=== PATIENT | female | born 1950 | race Caucasian/White ===

== ENCOUNTER → 2019-02-27 09:20 | Outpatient (CLI) | payer MEDICARE, OTHER, SELFPAY ==
--- NOTE | 2019-02-27 | DI.MRI.S_ITS ---
PROCEDURE: MR LUMBAR SPINE WO CON INDICATIONS: LUMBAR RADICULOPATHY TECHNIQUE: Noncontrast sagittal T1 spin echo and T2 fast echo, sagittal STIR, axial T1 and T2 fast spin echo through the lumbar spine. In cases with scoliosis, additional coronal T2 fast spin echo may be performed. COMPARISON: Outside Film, MR, MR LUMBAR SPINE WITH/WITHOUT CONTRAST, 12/26/2018, 8:36. Outside Film, MR, MR LUMBAR SPINE WITH/WITHOUT CONTRAST, 12/26/2018, 8:36. FINDINGS: Image quality: Excellent. Alignment and Curvature: There is normal bony alignment. Bone Marrow: There are degenerative endplate signal changes throughout the lumbar spine, most pronounced at the inferior endplate of L1, superior and inferior endplates of L2 and L3, and inferior endplate of L5. No acute vertebral body compression fractures. Spinal Cord: Conus medullaris terminates at the L1-L2 level. Visualized cord demonstrates normal signal and size. Paraspinous Soft Tissues: No paravertebral masses. L1-L2: Severe loss of disc height and disc desiccation. There is posterior disc bulge and disc osteophyte complex. The central canal is mildly narrowed. Mild bilateral foraminal stenosis. No definitive nerve root impingement. No significant change from last exam. L2-L3: Moderate loss of disc height and disc desiccation. There is posterior disc bulge and disc osteophyte complex. Mild facet arthropathy and hypertrophy of the ligamentum flavum. There is epidural lipomatosis. The central canal is uvcxntuy-dn-rqgcnr ly narrowed. Moderate left and mild right foraminal stenosis. No definitive nerve root impingement. No significant change from last exam. L3-L4: Moderate loss of disc height and disc desiccation. There is posterior disc bulge and disc osteophyte complex. Mild facet arthropathy and hypertrophy of ligamentum flavum. There is epidural lipomatosis. The central canal is severely narrowed. Moderate bilateral foraminal stenosis. No definitive nerve root impingement. No significant change from last exam. L4-L5: Mild loss of disc height and disc desiccation. There is posterior disc bulge and disc osteophyte complex. Severe facet arthropathy and mild hypertrophy of ligamentum flavum. There is epidural lipomatosis. The central canal is severely narrowed. Moderate bilateral foraminal stenosis. No definitive nerve root impingement. No significant change from last exam. L5-S1: Severe loss of disc height and disc desiccation. There is posterior disc bulge and disc osteophyte complex. Severe facet arthropathy and mild hypertrophy of ligamentum flavum. The central canal is mildly narrowed. Severe right and mild/moderate foraminal stenosis. No definitive nerve root impingement. No significant change from last exam. IMPRESSION: 1. Multilevel degenerative disc disease and facet arthropathy as described. 2. Severe central canal stenosis at L3-L4 and L4-L5, and vpdtbdso-hw-isrivb central canal stenosis at L2-L3. 3. Multilevel foraminal stenosis as described. 4. Epidural lipomatosis at L2-L5. Dictated by: Olivia Bojorquez M.D. on 03/01/2019 at 9:17 Approved by: Olivia Bojorquez M.D. on 03/01/2019 at 18:51
== END ==
PROVIDERS: Visit Provider Dentist Oral and Maxillofacial Surgery
DX: M54.16 Radiculopathy, lumbar region (principal); M51.36 Other intervertebral disc degeneration, lumbar region; M51.37 Other intervertebral disc degeneration, lumbosacral region; M47.816 Spondylosis without myelopathy or radiculopathy, lumbar region; M47.817 Spondylosis without myelopathy or radiculopathy, lumbosacral region; M48.061 Spinal stenosis, lumbar region without neurogenic claudication; M48.07 Spinal stenosis, lumbosacral region
CPT/HCPCS: 72148

== ENCOUNTER → 2019-04-28 08:57 | Outpatient (CLI) | payer MEDICARE, OTHER, SELFPAY ==
--- NOTE | 2019-04-28 | DI.ECHO.S_ITS ---
[facility]---------+ [facility] +---------+ : : [address] : : : : [id number] : : : : Phone: [phone]+ Echocardiogram Report + + :Name: EVA KNOX Study Date: 04/28/2019 Height: 61 in : :[facility] Exam Location: [facility] Weight: 155 lb : : Gender: Female BSA: 1.7 m2 : :: 1950 Age: 68 yrs BP: 164/74 mmHg: :Reason For Study: HTN : : Performed By: Jacob Nunez : :Referring: MARILU BALL : + + Interpretation Summary 1) Normal left ventricular size, thickness, wall motion, and systolic function (EF 60-65%). 2) Normal right ventricular size and function. 3) The left atrium is moderately dilated. 4) No significant valvular abnormalities. 5) No prior Echo available for comparison. Procedure: A two-dimensional transthoracic echocardiogram with color flow and Doppler was performed. The study quality was technically adequate. There is no prior echocardiogram noted for this patient. The patient was in normal sinus rhythm during the exam. The patient was bradycardic with a heart rate of 52-60 beats per minute. Left Ventricle: The left ventricle is normal in size. There is normal left ventricular wall thickness. The ejection fraction is estimated to be 60-65%. There are no focal wall motion abnormalities. Right Ventricle: The right ventricle is normal in size and function. Atria: The left atrium is moderately dilated. Right atrial size is normal. The interatrial septum is intact with no evidence for an atrial septal defect. Mitral Valve: The mitral valve is normal in structure and function. There is no evidence of mitral valve prolapse. There is mild mitral regurgitation. Aortic Valve: The aortic valve is trileaflet. The aortic valve opens well. There is no aortic valve stenosis. No aortic regurgitation is present. Tricuspid Valve: The tricuspid valve is normal in structure and function. There is a trace or physiologic amount of tricuspid regurgitation. Pulmonary artery pressures cannot be estimated because of the lack of a measurable TR jet velocity. Pulmonic Valve: The pulmonic valve is normal in structure and function. There is trace pulmonic regurgitation. Great Vessels: The aortic root is normal size. The dimensions of the ascending aorta are normal. The pulmonary artery is normal size. The IVC is of normal diameter and collapses greater than 50% with a sniff. This suggests a low right atrial pressure of 3 mm Hg. Pericardium/ Pleura There is no pericardial effusion. There is no pleural effusion. MMode/2D Measurements & Calculations LVIDd: 4.6 cm LVOT diam: 2.0 cm LVIDs: 2.6 cm Ao root diam: 2.8 cm FS: 43.0 % Aortic Jxn: 1.8 cm EPSS: 0.39 cm asc Aorta Diam: 2.8 cm IVSd: 0.86 cm Ao Arch Diam (Prox Trans): 2.2 cm LVPWd: 0.78 cm LV bradford. diameter/BSA (cm/m^2): 2.7 LV sys. diameter/BSA (cm/m^2): 1.5 LA dimension: 4.0 cm RA long axis: 5.4 cm LA A2 area: 22.9 cm2 RA area: 13.9 cm2 LA A4 area: 25.9 cm2 RA vol: 30.3 ml LA length (vol): 6.3 cm RA : 17.9 ml/m2 LA vol: 79.8 ml IVC diam: 1.5 cm LA vol index: 47.1 ml/m2 Doppler Measurements & Calculations Ao V2 max: 119.9 cm/sec LVOT Max Domenic: 86.1 cm/sec Ao V2 mean: 89.7 cm/sec LV V1 max P.0 mmHg Ao max P.8 mmHg LV V1 VTI: 21.7 cm Ao mean P.4 mmHg ROSA(I,D): 2.2 cm2 Ao V2 VTI: 30.5 cm ROSA(V,D): 2.3 cm2 sev ratio: 0.71 ROSA indexed to BSA (cm^2/m^2): 1.3 MV E max domenic: 95.3 cm/sec PA V2 max: 75.7 cm/sec MV A max domenic: 53.7 cm/sec PA V2 mean: 55.4 cm/sec MV E/A: 1.8 PA mean P.3 mmHg Med Peak E' Domenic: 5.6 cm/sec PA pr(Accel): 6.6 mmHg E/E' med: 17.1 PA Accel Time: 0.16 sec Lat Peak E' Domenic: 10.8 cm/sec E/E' lat: 8.8 E/e' average: 12.9 MV dec time: 0.19 sec SV(LVOT): 68.1 ml Reading Physician:12:52 PM
== END ==
PROVIDERS: PCP Physician Assistant Medical; Visit Provider Internal Medicine Cardiovascular Disease
DX: I08.1 Rheumatic disorders of both mitral and tricuspid valves (principal); I10 Essential (primary) hypertension
CPT/HCPCS: 93306

== ENCOUNTER 2019-09-08 07:26 | Inpatient (IN) | payer MEDICARE, OTHER, SELFPAY ==
[2019-09-02 12:58] VITALS: BMI 30.8
[2019-09-08] VITALS (17 sets, daily range): BP systolic 82–113; BP diastolic 47–61; PULSE 62–76; RESP 9–18; TEMP 36.1–36.4; O2SAT 93–100; BMI 30.1
--- NOTE | 2019-09-08 | DI.RAD.S_ITS ---
PROCEDURE: XR LUMBAR SPINE 2-3V INDICATIONS: L4-5 L5-S1 TLIF TECHNIQUE: 2 views of the lumbar spine were acquired. COMPARISON: None. FINDINGS: Bones: 5 bth-ith-dvkjatt vertebrae are present. There is normal bony alignment. No vertebral body compression fractures. No suspicious bony lesions. There is posterior fixation from L4-S1, with interbody disc cage prosthesis device is at the 2 intervening levels. Soft tissues: Overlying bowel gas pattern is normal. No suspicious soft tissue calcifications. IMPRESSION: Normal alignment established after L4-S1 fusion procedure as discussed. Dictated by: Paul Isabel M.D. on 09/08/2019 at 15:40 Approved by: Paul Isabel M.D. on 09/08/2019 at 15:48
[2019-09-08] MEDS: LACTATED RINGERS 1,000 ML 42 ML IV ×3 (08:29→12:47)
[2019-09-08] MEDS: ACETAMINOPHEN 325 MG TABLET 975 MG PO (08:31)
[2019-09-08] MEDS: GABAPENTIN 300 MG CAPSULE PO (08:32)
[2019-09-08] MEDS: CELECOXIB 200 MG CAPSULE 400 MG PO (08:32)
--- NOTE | 2019-09-08 08:37 | PM.PREOP ---
Pre-operative Note Interval Note History & Physical reviewed/Exam performed by Physician: Yes Changes to H&P: No
[2019-09-08] MEDS: CEFAZOLIN 2 GM/100 ML FROZ.PIGGY IV ×2 (08:50→16:30)
--- NOTE | 2019-09-08 09:42 | SUR.OPER ---
Prone on spine table, head in foam head support, padded chest and pelvic supports, gel pad at knees, lower legs supported by pillows; nipples, genitalia and toes free of pressure, arms secured on foam padded arm boards at <90 degrees abduction. Tape over blanket at thigh secured to table.
[2019-09-08] MEDS: BUPIVACAINE 0.25% W/ EPI 30 ML VIAL INJ (09:51)
[2019-09-08] MEDS: BUPIVACAINE LIPOSOME 266 MG/20 ML VIAL INJ (09:52)
--- NOTE | 2019-09-08 13:47 | P.OP_ITS ---
Operative Date/Time/Diagnoses Date of procedure: 09/08/19 Pre-op diagnosis: 1. L4-5, L5-S1 spondylolisthesis 2. L4-5, L5-S1 spinal stenosis 3. Lumbar scoliosis Post-op diagnosis: same Procedure & Clinicians Procedure: 1. L4-5, L5-S1 Postero-lateral and posterior interbody fusion 2. L4-5, L5-S1 interbody cage placement. 3. L4-5, L5-S1 decompressive laminectomy with bilateral facetecomies 4. L4-5, L5-S1 Posterior segmental instrumentation 5. Tracy of bone marrow from iliac crest 6. Utilization of microsurgical technique and operating microscope Same procedure as scheduled: Yes Indications: Patient has been having chronic back pain and worsening lumbar radiculopathy. Patient failed multiple conservative management with worsening pain weakness and numbness in her lower extremity. Patient has been having difficulty performing activity of daily living. After discussing risks benefits of treatment options, patient elected proceed with surgery. Surgeon: Luis Larkin Media Relations Director: Rachel Zabala Click Yes if Unassisted: No Anesthesia Type: General Operative Notes Closure Type: primary Specimen(s): none sent Prosthetic devices, grafts, tissues, transplants, or devices: Globus revolve screws, Rise cages Applied: catheter Estimated Blood Loss (mL): 100 Blood products transfused: none Procedure in detail: Patient was seen in the preoperative area. Risks and benefits of the surgery was discussed with the patient. Informed consent was obtained from the patient and placed in the chart. Surgical site was marked. Patient was taken to the operative room. General anesthesia was administered. Prophylactic antibiotic was given to the patient less than 30 min before the incision was made. Patient was placed into a prone position on the Martin table. Patient's back was then prepped and draped in the sterile fashion. Time- out was performed at this time. Using AP and lateral C-arm imaging the interval between L4-S1 was identified and marked on patient's back. A 2 inch incision 2 in from midline was made on the right side first. The fascia was incised in line with skin incision. Globus MARS retractors was placed inside the incision and docked onto the L4 and L5 lamina. Using microsurgical technique and operating microscope, a L4 and L5 laminectomy and L4-5 L5-S1 facetectomy was performed using a Kerrison rongeur. During the process of decompression more than 75% of bilateral L4-5 L5-S1 facets were removed in order to decompress the spinal canal and the lateral recess. The L4-5 L5-S1 level was grossly unstable after the decompression was completed and requiring the fusion procedure. The disc space at L4-5, L5-S1 was identified. And a total diskectomy was performed at L4-5, L5-S1 level. The endplates were decorticated using a rasp and shaver. The total diskectomy and decortication was performed at L4-5, L5-S1 level in order to to accomplish a L4- 5, L5-S1 fusion. The local bone from the laminectomy and facetectomy was saved for local bone grafting. After the total diskectomy and decortication was completed, Bio4 bone graft material was combined with local bone that was harvested earlier. At this time, a separate skin is incision was made over the iliac crest. A Jamshidi needle was inserted into the iliac crest through a separate skin incision. 5 cc of bone marrow aspiration was obtained through the separate skin incision using a Jamshidi needle from the iliac crest. The bone marrow aspiration was combined with local bone and the Bio4 bone grafting material. The bone grafting material was placed into the L4-5, L5-S1 interbody space along with two cages, one expandable cage at each level. The cages were expanded to their maximum height using the torque limiting screwdriver. At this time a mirror image incision was made on the left side. The fascia was incised in line with the skin incision. Globus MARS retractor was inserted and docked onto the L4-5, L5-S1 posterolateral gutter. Using the power drill, posterior-lateral decortication was performed at L4-5, L5-S1 level until bleeding cortical bone was identified. The remaining bone grafting material was placed into the L4-5 L5-S1 posterior lateral gutter he order to accomplish posterolateral fusion at the L4-5 L5-S1 levels. Using the double C-arm technique, pedicle screws were placed into the L4, L5, S1 pedicles bilaterally. This was done by placing the Jamshidi needle into the pedicles, then placing the guidewires over the Jamshidi needle, and finally placing the cannulated screws over the guidewires bilaterally. After the pedicle screws were placed, 2 titanium rods was locked into the heads of the pedicle screws using locking caps and torque limiting screwdriver. Total 6 pedicles screws were placed. After all the hardware was placed, and confirmed with AP and lateral C-arm imaging, the wound was then irrigated with sterile normal saline and packed with Ray-Arturo gauze for 3 min to accomplish hemostasis. After the gauze was removed the deep fascia was closed with #1 Vicryl suture. The subcutaneous layer was closed with 2-0 Vicryl. The skin was closed with skin michelle. Patient tolerated the procedure well. There were no complications. Complications: none Post-operative Condition: stable Disposition: PACU Plan for aftercare: Admit to inpatient hospital
[2019-09-08] MEDS: HYDROMORPHONE 2 MG INJ IV ×2 (14:15→14:46)
[2019-09-08] MEDS: fentaNYL 100 MCG/2 ML INJ IV ×3 (14:16→14:38)
[2019-09-08] MEDS: hydrOXYzine pamoate 25 MG CAPSULE PO (14:16)
[2019-09-08] MEDS: OXYCODONE IR 5 MG TABLET PO (15:25)
[2019-09-08] MEDS: SODIUM CHLORIDE 0.9% 1,000 ML 100 ML IV (16:30)
--- NOTE | 2019-09-08 16:43 | PC.ADMIT ---
[address] Admission Note: The patient,Darlene Brady,69 y/o, was given written information regarding hospital policies, unit procedures and contact persons. Patient's smoking status: Former smoker. Vital Signs - 8 hr 09/08/19 13:54 09/08/19 13:59 09/08/19 14:04 Temperature 97.5 F L Pulse Rate 71 66 64 Respiratory Rate 11 L 10 L 12 Blood Pressure 108/54 L 82/47 L 93/55 L Pulse Oximetry 97 95 97 09/08/19 14:09 09/08/19 14:24 09/08/19 14:39 Temperature 96.9 F L Pulse Rate 71 76 72 Respiratory Rate 9 L 13 9 L Blood Pressure 104/61 99/53 L 93/49 L Pulse Oximetry 96 99 100 09/08/19 14:54 09/08/19 15:09 09/08/19 15:19 Temperature Pulse Rate 71 67 69 Respiratory Rate 12 10 L 10 L Blood Pressure 98/52 L 103/57 L 93/57 L Pulse Oximetry 94 97 100 09/08/19 15:53 09/08/19 16:26 Temperature 96.9 F L 97.1 F L Pulse Rate 67 65 Respiratory Rate 16 17 Blood Pressure 113/57 L 113/57 L Pulse Oximetry 100 98 Patient over from pacu. Awake and alert, calm and cooperative. Patient states pain 8/10, flight director give patient does of oxycodone at bed side. Maximiliang CDI. At this time pain is decreasing.
--- NOTE | 2019-09-08 16:57 | SUR.PHASEII ---
Report was called to LIA Martinez at 1500. Pt was then transferred to room 226 in stable condition at 1518.
[2019-09-08] MEDS: OXYCODONE IR 10 MG TABLET PO ×2 (18:53→22:15)
[2019-09-08] MEDS: QUINAPRIL 20 MG TABLET PO (20:20)
[2019-09-08] MEDS: DOCUSATE 100 MG CAPSULE PO (20:20)
[2019-09-08] MEDS: AMITRIPTYLINE 25 MG TABLET PO (20:20)
[2019-09-08] MEDS: SENNOSIDES 8.6 MG TABLET 17.2 MG PO (20:20)
[2019-09-08] MEDS: ATORVASTATIN 20 MG TABLET PO (20:20)
[2019-09-08] MEDS: atenoloL 50 MG TABLET 150 MG PO (20:21)
--- NOTE | 2019-09-08 21:30 | PC.NURSE ---
Patient resting in bed since back from pacu. Pain controlled well with oxycodone. + CMS. Patient has been calm and cooperate.
[2019-09-09] VITALS (7 sets, daily range): BP systolic 98–165; BP diastolic 48–73; PULSE 60–75; RESP 16–18; TEMP 36.5–36.9; O2SAT 97–100
--- NOTE | 2019-09-09 00:08 | PC.NURSE ---
Addendum entered by Erne Anaya R.N. 09/09/19 06:45: 0515: Awake, vital signs stable. Denies pain at this time. Addendum entered by Eren Anaya R.N. 09/09/19 04:59: 0405: Awake, denies pain at this time. Has been sleeping well. Original Note: Caustic Loader Note: 0000: Awake, resting in bed. Vital signs stable. Pt recently medicated for pain. O2 sats 86-90: placed on 2L O2/NC. IV in place in rt forearm.
[2019-09-09] MEDS: CEFAZOLIN 2 GM/100 ML FROZ.PIGGY IV (00:48)
[2019-09-09] MEDS: SODIUM CHLORIDE 0.9% 1,000 ML 100 ML IV (04:04)
[2019-09-09 05:02] LABS: Hematocrit 30.3 % (36-46); Hemoglobin 10.6 g/dL (12.0-16.0)
[2019-09-09] MEDS: OXYCODONE IR 10 MG TABLET PO ×5 (07:59→22:12)
[2019-09-09] MEDS: ALPRAZolam 0.5 MG TABLET 1 MG PO ×2 (07:59→21:19)
--- NOTE | 2019-09-09 10:42 | PT.IIE ---
Current Diagnoses Other secondary scoliosis, lumbar region (09/08/19) Other spondylosis with radiculopathy, lumbosacral region (09/08/19) Spinal stenosis, lumbar region without neurogenic claudication (09/08/19) Surgery Performed Operation Date: 09/08/19 08:45 Actual Procedures p L4-5,L5-S1 TLIF W/ Posterior Instrumentation - Luis Larkin MD Surgical History (Last Updated 09/02/19 @ 13:18 by Vicky Ngo RN) H/O: hysterectomy (Acute) History of bunionectomy of left great toe (Acute) Hx of lymph node biopsy (Acute) Hx of shoulder surgery (Acute) Medical History (Last Updated 09/03/19 @ 08:14 by Vicky Ngo RN) Acid reflux (Acute) Anxiety (Acute) Arthritis (Acute) ASHD (arteriosclerotic heart disease) (Acute) Atrial fibrillation (Acute) CAD (coronary artery disease) (Acute) H/O coronary angiogram (Acute ~2007) History of esophageal dilatation (Acute) HLD (hyperlipidemia) (Acute) HTN (hypertension) (Acute) PAF (paroxysmal atrial fibrillation) (Acute) Tuberculosis (Acute) Physical Therapy Inpatient Evaluation/Re-Eval M1 PT/OT-IP Prior Functional Status Start: 09/09/19 12:55 Freq: NEEDED Status: Active Protocol: Document 09/09/19 10:42 AB (Rec: 09/09/19 13:12 AB [id number]) Medical Review Prior Functional Status Medical History Reviewed Yes Communication able to make needs known Mobility and Gait pt stated that she is independent with all mobilities and ambulation without AD Social History Household Members significant other Living Arrangements House Number of Floors (Floors) One Floor Number of Stairs To Enter/Railing? 2 steps to enter with L rail ascending Home Environment Standard Height Toilet,Walk in Shower Home Equipment Straight Cane,Raised Toilet Seat Without Armrests,Hand Held Shower M2 PT-IP Current Condition Start: 09/09/19 12:55 Freq: NEEDED Status: Active Protocol: Document 09/09/19 10:42 AB (Rec: 09/09/19 13:12 AB [id number]) Physical Therapy Current Condition Current Condition Evaluation Date 09/09/19 Treatment Diagnosis s/p L4-5 L5S1 posterior fusion /lami; difficulty in walking Onset Date 09/08/2019 Precautions Lumbar Precautions Log Roll,No Twisting,Limit Bending,Lifting Restriction of 10 lbs,Gait Belt above Incisional Area M3 PT-IP Subjective Start: 09/09/19 12:55 Freq: NEEDED Status: Active Protocol: Document 09/09/19 10:42 AB (Rec: 09/09/19 13:12 AB [id number]) Subjective Physical Therapy Visit Type Type Initial Evaluation Visit Start Time 10:42 Visit Stop Time 11:25 Total Visit Minutes 43 Number of SCRAP METAL BURNER Visits 0 Physical Therapy Visit Comments Patient Comments pt is agreeable to do PT Therapy Pain Assessment Pain When Pain Assessed At Rest Pain Present Pain Present Pain Reported Location back Intensity 8 Scale Used Numeric (1 - 10) Pain Management Techniques Re-positioning,Timing of Activity with Medications M4 PT-IP Mobility and Gait Start: 09/09/19 12:55 Freq: NEEDED Status: Active Protocol: Document 09/09/19 10:42 AB (Rec: 09/09/19 13:12 AB [id number]) PT-Bed Mobility Assessment Rolling Type of Rolling Log Rolling Level of Assist Minimal Assistance Supine to Sit Supine to Sit Minimal Assistance PT-Transfer Assessment Sit to and From Stand Sit to and from Stand Minimal Assistance,Moderate Assistance,1 Person Assistance ,Use of Upper Extremities Equipment Transfer Assistive Device Gait Belt,Front Wheeled Walker Orthotic/Prosthetic Devices or Brace: No Transfers Transfer Destination Chair Transfer Technique ambulated using FWW Transfer Ability Level of Assist Minimal Assistance,Moderate Assistance,1 Person Assistance ,Use of Upper Extremities Comments Mobility Comments BP in supine: 103/55. reviewed back precautions and log roll bed mobility. pt completed bed mobility supine to sit min A and cues. Pt was able to sit on EOB SBA. BP: 121/56. pt was able to sit on EOB without any other complaints aside from back pain and BP checked again after ~ 2 min : 149/65. pt completed sit to stand min A to mod A and cues and was able to ambulate in room ~ 20 ft before sitting on the chair. positioned pt on the chair. call light and table placed within reach. BP checked: 157 /68. left pt with spouse. informed nurse regarding pt's mobility and BP Gait Assessment Gait Gait Assistance Required: Minimum Assistance Distance (Feet) 20 Able to Maintain Weight Bearing Status Yes During Gait Assistive Devices Assistive Device Gait Belt,Front Wheeled Walker Orthotic/Prosthetic Devices or Brace: No Gait Deviations General Gait Pattern Antalgic,Decreased Stride Length,Decreased Feet Clearance Factors Limiting Gait Function Factors Limiting Gait Function Decreased Activity Tolerance, Decreased Strength,Limited Range of Motion,Pain,Poor Balance PT-Balance Assessment Sitting Balance and Reactions Static Sitting Balance Ability Good Dynamic Sitting Balance Ability Good Standing Balance and Reactions Static Standing Balance Ability Fair Dynamic Standing Balance Ability Fair Device Used FWW M5 PT-IP Objective Assessments Start: 09/09/19 12:55 Freq: NEEDED Status: Active Protocol: Document 09/09/19 10:42 AB (Rec: 09/09/19 13:12 AB [id number]) Orientation Orientation/Cognition Level of Alertness Alert Orientation Name,Place,Situation Language Function Ability Hard of Hearing Gross Range of Motion Lower Extremity ROM Assessment Within Functional Limits Strength Comments Strength Comments RLE 3+/5 LLE 4-/5 Coordination Assessment Gross Coordination Gross Coordination WNL Sensation Assessment Sensation Gross Sensation WNL Muscle Tone Muscle Tone WNL Yes M6 PT-IP Treatment Start: 09/09/19 12:55 Freq: NEEDED Status: Active Protocol: Document 09/09/19 10:42 AB (Rec: 09/09/19 13:12 AB [id number]) Physical Therapy Treatment Education Education Provided Precautions,Weight Bearing Status,Post-Op Packet,Safety M7 PT-IP Assessment and Plan Start: 09/09/19 12:55 Freq: NEEDED Status: Active Protocol: Document 09/09/19 10:42 AB (Rec: 09/09/19 13:12 AB [id number]) PT Summary Assessment and Plan Potential Rehabilitation Potential Good Status of Condition at Evaluation Evolving Summary Impairments Pain,ROM,Strength,Balance, Coordination,Sensation,Tone, Cognition,Bed Mobility, Transfers,Gait,Activity Tolerance Assessment Summary pt requiring min to mod A with mobility using FWW but has decrease activity tolerance with c/o increase back pain. pt will likely progress during hospital stay and pt plans to go home with spouse to assist her. will conduct caregiver traing when appropriate and complete stair training. Goals Bed Mobility Goal Standby Assistance Transfer Goal Standby Assistance,Front Wheeled Walker Gait Goal Standby Assistance,Front Wheel Walker Gait Distance 150 Other Goals up/down 2 steps L rail ascending SBA Days to Meet Goals 5 Frequency of Treatment Frequency Of Treatment Twice a Day Treatment Plan Physical Therapy Treatment Plan Bed Mobility Training,Transfer Training,Gait Training, Therapeutic Exercise,Balance Retraining,Post Op Education, Discharge Planning,Hot or Cold Pack,Neuromuscular Re-ed, Coordination Retraining,Manual Therapy Other Recommendations and Next Treatment ambulation, bed moblity, Focus caregiver training Recommendations To Nursing Amount of Assist Needed 1 Person Assist Discharge Recommendations PT Discharge Recommendations Home with Assistance Equipment Needed for Home Before FWW Discharge Transportation Needs at Discharge Private Vehicle
[2019-09-09] MEDS: DOCUSATE 100 MG CAPSULE PO ×2 (10:50→21:16)
[2019-09-09] MEDS: ACETAMINOPHEN 325 MG TABLET 650 MG PO ×2 (10:50→21:16)
[2019-09-09] MEDS: MAGNESIUM OXIDE 400 MG TABLET PO (10:52)
--- NOTE | 2019-09-09 10:57 | CM.DANOTE ---
DCP: Case received, EMR reviewed and met with patient. Introduced self and role. Was able to meet with patient to obtain baseline health history and activity level. DCP assessment completed with information currently available. Patient is a 69 year old female who admitted yesterday morning to the care of the orthopedic team. PCP: Dr. Rodriguez. Payer: confirmed: Medicare/[employer]. Patient came to the hospital for a surgical procedure. She had Interbody Fusion/Laminectomy. Patient has had history of low back pain, as well as lower extremity numbness and tingling. Met with patient in her room. She is alert and oriented, Pleasant. Confirmed with patient that she resides in [place], on [facility] and lives alone. She has been independent prior to surgery, and does not use any DME supplies as of yet, but stated, I do use grabbers to help me integrated logistics support manager items off of the floor. She asked if she would need a walker. Let her know that P.T. would be working with her to make that determination. She also mentioned that she has a significant other, Jose Jack, who will help her out at home, as well as her neighbor, Elisha Miramontes. P: DCP to continue to follow, and will consult with P.T. When patient is medically cleared, and when cleared by P.T, she should be able to go home. Chelo Logan RN/Commutator Tester
[2019-09-09] MEDS: QUINAPRIL 20 MG TABLET PO (12:32)
[2019-09-09] MEDS: atenoloL 50 MG TABLET 150 MG PO (12:32)
[2019-09-09] MEDS: TRIAMTERENE/HCTZ 37.5/25 TABLET 1 CAP PO (12:32)
--- NOTE | 2019-09-09 15:14 | OT.IP.EVAL ---
Current Diagnoses Other secondary scoliosis, lumbar region (09/08/19) Other spondylosis with radiculopathy, lumbosacral region (09/08/19) Spinal stenosis, lumbar region without neurogenic claudication (09/08/19) Surgery Performed Operation Date: 09/08/19 08:45 Actual Procedures p L4-5,L5-S1 TLIF W/ Posterior Instrumentation - Luis Larkin MD Past Medical History (Last Updated 09/03/19 @ 08:14 by Vicky Ngo RN) Acid reflux (Acute) Anxiety (Acute) Arthritis (Acute) ASHD (arteriosclerotic heart disease) (Acute) Atrial fibrillation (Acute) CAD (coronary artery disease) (Acute) H/O coronary angiogram (Acute ~2007) History of esophageal dilatation (Acute) HLD (hyperlipidemia) (Acute) HTN (hypertension) (Acute) PAF (paroxysmal atrial fibrillation) (Acute) Tuberculosis (Acute) Surgical History (Last Updated 09/02/19 @ 13:18 by Vicky Ngo RN) H/O: hysterectomy (Acute) History of bunionectomy of left great toe (Acute) Hx of lymph node biopsy (Acute) Hx of shoulder surgery (Acute) Occupational Therapy Inpatient Evaluation/Re-Eval M1 PT/OT-IP Prior Functional Status Start: 09/09/19 12:55 Freq: NEEDED Status: Active Protocol: Document 09/09/19 15:14 KG (Rec: 09/09/19 17:06 KG [id number]) Medical Review Prior Functional Status Medical History Reviewed Yes Diet/Fluid Consistency Regular Communication WNL Mobility and Gait Pt states she is independent with ambulation without a device Activities of Daily Living and IADL's Pt states she is independent with all self care and does all IADLS at home, drives. Prior Functional Level (Other details) Pt's S.O. works auto parts clerk and has COPD per pt. Social History Household Members significant other Living Arrangements House Number of Floors (Floors) One Floor Number of Stairs To Enter/Railing? 2 TIM L rail ascending Home Environment Standard Height Toilet,Walk in Shower Home Equipment Straight Cane,Raised Toilet Seat Without Armrests,Hand Held Shower,Restaurant Recruiter Employment Status Retired M2 OT-IP Current Condition Start: 09/09/19 13:31 Freq: Status: Active Protocol: Document 09/09/19 15:14 PJM (Rec: 09/09/19 17:06 [facility] [id number]) Occupational Therapy Current Condition Current Condition Evaluation Date 09/09/19 Treatment Diagnosis decreased self care, mobility s/p L4-s1 TLIF with posterior instrumentation Diagnosis Onset Date 09/08/19 Post Operative Precautions Lumbar Precautions Log Roll M3 OT- IP Subjective and Pain Start: 09/09/19 13:31 Freq: Status: Active Protocol: Document 09/09/19 15:14 PJM (Rec: 09/09/19 17:06 PJ [id number]) OT- Subjective Occupational Therapy Visit Type Type Initial Evaluation Visit Start Time 14:31 Visit Stop Time 15:14 Total Visit Minutes 43 Occupational Therapy Visit Comments Patient Comments I tried to plan ahead. I freeze a lot of meals and get everything where I can reach it easily. Patient/Caregiver Goals to have less back pain during daily tasks and resume independence at home OT Pain Assessment Pain When Pain Assessed After Treatment Pain Present Pain Present Pain Reported Location back Intensity 3 Scale Used Numeric (1 - 10) Description Aching,Acute M4 OT- IP ADL's Start: 09/09/19 13:31 Freq: Status: Active Protocol: Document 09/09/19 15:14 PJM (Rec: 09/09/19 17:06 [facility] [id number]) OT [id number] General Evaluation Self-Feeding Ability Independent OT ADL-Grooming Comments OT Grooming Comments provided education re: body mechanics when standing at sink OT ADL-Oral Care Comments Oral Care Comments did not occur this session OT ADL-Dressing General Eval Lower Body Dressing Ability Standby Assistance Areas Needing Assistance Underpants/Brief,Socks Assistive Devices Dressing Assistive Devices Long Handled Shoe Horn,Restaurant Recruiter ,Sock Aid Comments OT Dressing Comments Provided education and practice re: use of manager park, sock aid and long shoe horn with emphasis on lumbar spine precautions. Pt has manager park, sock aid and long shoe horn provided. OT ADL-Toileting General Evaluation Areas Needing Assistance Perform Perineal Hygiene Comments OT Toileting Comments provided education re: body mechanics and use of toilet paper aid if needed OT ADL-Bathing Devices Bathing Equipment Long Handled Sponge or [place], Hand Held Shower Sprayer, Shower Chair without Arms Comments OT Bathing Comments pt declines to shower here; provided education re: body mechanics and long bath sponge provided, pt has ordered shower seat M5 OT- IP IADL's Start: 09/09/19 13:31 Freq: Status: Active Protocol: Document 09/09/19 15:14 PJM (Rec: 09/09/19 17:06 [facility] [id number]) OT-Instrumental Activities of Daily Living Deficits IADL Deficits Identified Deficits Home Safety Awareness Awareness of Need for Assistance at Home Good Awareness Ability to Problem Solve Emergency Able to Problem Solve Situations Medication Management Medication Management No Deficits Identified Money Management Money Management No Deficits Identified Meal Preparation Meal Preparation Caregiver Provides Assist Meal Preparation Comments S.O. to assist until pt able Night Manager Night Manager Caregiver Provides Assist Night Manager Comments S.O. to assist until pt able Driving Driving Caregiver Provides Assist Driving Comments S.O. to assist until pt able M6 OT- IP Functional Cognition Start: 09/09/19 13:31 Freq: Status: Active Protocol: Document 09/09/19 15:14 PJM (Rec: 09/09/19 17:06 [facility] [id number]) Cognitive Factors Limiting Selfcare Function Cognitive Ability Level of Alertness Alert Patient Orientation Name,Age,Birthday,Month,Date, Year,Day of Week,Place, Situation Attention Span Ability Capable of Focused Attention, Capable of Sustained Attention Ability to Follow Commands Able to Follow Multi-Step Commands Memory Description No Deficits Noted Safety Awareness No Deficits Noted Problem Solving Ability Needs Assist to Identify Solutions Cognitive Comments Cognitive Assessment Comments Pt verbalizes and demonstrates good understanding of lumbar spine precautions. OT- Vision and Hearing OT- Hearing Assessment OT- Hearing Assessment WFL OT- Vision Assessment Visual Acuity WFL,Glasses For Reading M7 OT- IP Mobility and Balance Start: 09/09/19 13:31 Freq: Status: Active Protocol: Document 09/09/19 15:14 PJ (Rec: 09/09/19 17:06 [facility] [id number]) OT-Transfer Assessment Sit to and From Stand Sit to and from Stand Contact Guard Assistance Technique Transfer Destination Chair Devices Transfer Assistive Devices Gait Belt,Front Wheeled Walker Comments Mobility Comments provided education re: body mechanics OT- Gait Assessment Comments Gait Ability Comments see P.T. notes OT- Balance Assessment Sitting Balance and Reactions Static Sitting Balance Ability Good Dynamic Sitting Balance Ability Good Standing Balance and Reactions Static Standing Balance Ability Good Dynamic Standing Balance Ability Good Comments Other Balance Tests/Deviations/Treatment during lower body dressing : M8 OT- IP Objective Assessments Start: 09/09/19 13:31 Freq: Status: Active Protocol: Document 09/09/19 15:14 PJM (Rec: 09/09/19 17:06 PJM [id number]) OT Gross Range of Motion Upper Extremity Range of Motion Assessment Within Functional Limits OT Strength Upper Extremity Strength Assessment Within Functional Limits Hand Tile And Marble Setter Strength Hand Dominance Left OT- Coordination Assessment Comments Coordination Comments BUE WNL OT Sensation Assessment Comments Summary Comments BUE WNL Edema Edema Absent M9 OT- IP Assessment and Plan Start: 09/09/19 13:31 Freq: Status: Active Protocol: Document 09/09/19 15:14 PJM (Rec: 09/09/19 17:06 PJM [id number]) OT Summary Assessment and Plan Potential Rehabilitation Potential Excellent Analytic Complexity at Evaluation Low Summary OT Impairments Pain,Functional Mobility, Dressing,Toileting,Bathing, Toilet Transfers,Shower Transfers,Activity Tolerance Assessment Summary Low complexity OT assessment completed on this 69 yr old woman admitted for L4-S1 TLIF. Pt is normally completely independent with all ADLS, IADLS, driving. Pt presents with mild performance deficits in functional mobility and self care due to post operative pain. Provided education re: lumbar spine precautions, posture, optimal chair selection, adapted techniques for lower body dressing and toileting, bathroom safety equipment options and car transfers. Plan 1 additional OT tx for further ADL training. Anticipate pt will d/c home tomorrow with assist from working S.O. and friends. Goals Grooming Goal Independent Dressing Goal Independent Toileting Goal Independent Toilet Transfer Goal Independent,Raised Toilet Seat Patient/Caregiver Education Goal Demonstrate Post-Op Precautions,Demonstrate Energy Conservation and Pacing, Caregiver Independent Assisting Patient Days to Meet Goals 1 Frequency of Treatment Frequency Of Treatment Once a Day Treatment Plan OT Treatment Plan ADL Training,Functional Mobility,Patient/Family Education,Discharge Planning Discharge Recommendations OT Discharge Recommendations Home with Assistance Transportation Needs at Discharge Private Vehicle
--- NOTE | 2019-09-09 15:17 | PT.IPTN ---
Current Diagnoses Other secondary scoliosis, lumbar region (09/08/19) Other spondylosis with radiculopathy, lumbosacral region (09/08/19) Spinal stenosis, lumbar region without neurogenic claudication (09/08/19) Surgery Performed Operation Date: 09/08/19 08:45 Actual Procedures p L4-5,L5-S1 TLIF W/ Posterior Instrumentation - Luis Larkin MD Physical Therapy Treatment Note M2 PT-IP Current Condition Start: 09/09/19 12:55 Freq: NEEDED Status: Active Protocol: Document 09/09/19 10:42 AB (Rec: 09/09/19 13:12 AB [id number]) Physical Therapy Current Condition Current Condition Evaluation Date 09/09/19 Treatment Diagnosis s/p L4-5 L5S1 posterior fusion /lami; difficulty in walking Onset Date 09/08/2019 Precautions Lumbar Precautions Log Roll,No Twisting,Limit Bending,Lifting Restriction of 10 lbs,Gait Belt above Incisional Area M3 PT-IP Subjective Start: 09/09/19 12:55 Freq: NEEDED Status: Active Protocol: Document 09/09/19 15:17 AB (Rec: 09/09/19 17:50 AB [id number]) Subjective Physical Therapy Visit Type Type Treatment Note Visit Start Time 15:17 Visit Stop Time 15:43 Total Visit Minutes 26 Number of LEARNING FACILITATOR Visits 0 Physical Therapy Visit Comments Patient Comments pt agreeable to do PT Therapy Pain Assessment Pain When Pain Assessed At Rest Pain Present Pain Present Pain Reported Location back Intensity 6 Scale Used Numeric (1 - 10) Pain Management Techniques Apply Cold,Re-positioning, Timing of Activity with Medications M4 PT-IP Mobility and Gait Start: 09/09/19 12:55 Freq: NEEDED Status: Active Protocol: Document 09/09/19 15:17 AB (Rec: 09/09/19 17:50 AB [id number]) PT-Bed Mobility Assessment Rolling Type of Rolling Log Rolling Level of Assist Standby Assistance Sit to Supine Sit to Supine Standby Assistance PT-Transfer Assessment Sit to and From Stand Sit to and from Stand Contact Guard Assistance,1 Person Assistance,Use of Upper Extremities Equipment Transfer Assistive Device Gait Belt,Front Wheeled Walker Orthotic/Prosthetic Devices or Brace: No Transfers Transfer Destination Bed,Toilet Transfer Technique ambulated using FWW Transfer Ability Level of Assist Contact Guard Assistance Comments Mobility Comments pt compoleted sit to stand from the chair CGA and cues. ambulated to the toilet using FWW CGA. required cues for techniques and safety. pt was able to maintain standing using FWW for support with brief management. completed sit to stand from the toilet CGA using grab bar and FWW to assist. ambulated to the sink using FWW CGA and was able to maintain standing CGA. pt ambulated in the hallway ~ 125 ft using fWW CGA and cues. presents with slow torey and guarded mobility. pt requested to go back to the bed. completed sit to supine SBA and cues. positioned in bed. call light and table placed within reach. Gait Assessment Gait Gait Assistance Required: Contact Guard Assist,1 Person Assist Distance (Feet) 125 Able to Maintain Weight Bearing Status No During Gait Assistive Devices Assistive Device Gait Belt,Front Wheeled Walker Orthotic/Prosthetic Devices or Brace: No Gait Deviations General Gait Pattern Decreased Stride Length, Decreased Feet Clearance Factors Limiting Gait Function Factors Limiting Gait Function Decreased Activity Tolerance, Decreased Strength,Limited Range of Motion,Pain,Poor Balance,Poor Safety Awareness Comments Gait Comments pls refer to mobility section for details M5 PT-IP Objective Assessments Start: 09/09/19 12:55 Freq: NEEDED Status: Active Protocol: Document 09/09/19 10:42 AB (Rec: 09/09/19 13:12 AB [id number]) Orientation Orientation/Cognition Level of Alertness Alert Orientation Name,Place,Situation Language Function Ability Hard of Hearing Gross Range of Motion Lower Extremity ROM Assessment Within Functional Limits Strength Comments Strength Comments RLE 3+/5 LLE 4-/5 Coordination Assessment Gross Coordination Gross Coordination WNL Sensation Assessment Sensation Gross Sensation WNL Muscle Tone Muscle Tone WNL Yes M6 PT-IP Treatment Start: 09/09/19 12:55 Freq: NEEDED Status: Active Protocol: Document 09/09/19 15:17 AB (Rec: 09/09/19 17:50 AB [id number]) Physical Therapy Treatment Education Education Provided Precautions,Safety M7 PT-IP Assessment and Plan Start: 09/09/19 12:55 Freq: NEEDED Status: Active Protocol: Document 09/09/19 15:17 AB (Rec: 09/09/19 17:50 AB [id number]) PT Summary Assessment and Plan Potential Rehabilitation Potential Good Summary Impairments Pain,ROM,Strength,Balance,Bed Mobility,Transfers,Gait, Activity Tolerance Progress Towards Goals Progressing Toward Goals Assessment Summary pt progressing with mobility but has decrease activity tolerance and requires increase time to complete tasks. Nurse informed PT that pt has d/c order to go home today. informed nurse that pt is not ready to go home and has to do stair training and caregiver training prior to d/ c. informed PA regarding concerns of discharging today and stated that pt can go tomorrow. Caregiver traing set up for tomorrow at 10 am per pt's choice. Nurse aware of plans. Goals Bed Mobility Goal Standby Assistance Transfer Goal Standby Assistance,Front Wheeled Walker Gait Goal Standby Assistance,Front Wheel Walker Gait Distance 150 Other Goals up/down 2 steps L rail ascending SBA Days to Meet Goals 5 Frequency of Treatment Frequency Of Treatment Twice a Day Treatment Plan Physical Therapy Treatment Plan Bed Mobility Training,Transfer Training,Gait Training, Therapeutic Exercise,Balance Retraining,Post Op Education, Discharge Planning,Hot or Cold Pack,Neuromuscular Re-ed, Coordination Retraining,Manual Therapy Other Recommendations and Next Treatment ambulation, bed moblity, Focus caregiver training Recommendations To Nursing Amount of Assist Needed 1 Person Assist Discharge Recommendations PT Discharge Recommendations Home with Assistance Equipment Needed for Home Before FWW Discharge Transportation Needs at Discharge Private Vehicle
--- NOTE | 2019-09-09 17:08 | PC.NURSE ---
Addendum entered by Stacy Bah R.N. 09/09/19 22:57: Pt sleeping soundly. No c/o pain. Addendum entered by Stacy Bah R.N. 09/09/19 21:25: Addendum entered by Stacy Bah R.N. 09/09/19 21:22: Pt rating pain now as 5/10 post IV Dilaudid. No longer crying. Addendum entered by Stacy Bah R.N. 09/09/19 21:14: Called to pt's room for 10/10 pain. Pt has BLE spasming, able to move both extremities. +CSM. Crying and clearly anxious from intense spasm. Given 0.5mg IV Dilaudid. Addendum entered by Stacy Bah R.N. 09/09/19 17:39: Pt to stay overnight. BAILEY Armstrong and PT have spoken face to face. Confirmed pt to DC tomorrow after PT does stair training and caregiver training around 10am./ Pt understands and is comfortable with the plan of care. POC tonight- pain control, encourage food intake, ambulate with walker and RN assistance and sleep well. Original Note: Pt given DC orders from physician. PT notified pt neds walker for home. Per PT- Pt is not ready and has not been completed on all discharge needs. Pt was not aware pt was to be discharged and cannot stay to complete stair eval or caregiver eval. Pt states her does not need caregiver training. Contacted DEVIN Armstrong and Dr Sue. Will coordinate communication between teams and let patient know.
--- NOTE | 2019-09-09 17:47 | PM.PNPO.1 ---
Subjective Subjective Date Patient Seen: 09/09/19 Time Patient Seen: 17:47 Interval history: POD #1 s/p L4-5, L5-S1 TLIF with Dr. Larkin. No acute events overnight. Patient reports 8/10 pain at rest. Pain is managed with tylenol and oxycodone. Mobilizing slowly with PT secondary to pain. Voiding without difficulty or assistance. Denies fever, chills, chest pain, shortness of breath, nausea, vomiting, pain in calves, urinary/bowel incontinence Exam Vital Signs (past 8 hours): - 09/09/19 10:29 09/09/19 12:02 09/09/19 16:07 Temperature 98.2 F 98.4 F Pulse Rate 66 60 Respiratory Rate 16 16 Blood Pressure 104/48 L 165/73 H 110/53 L Pulse Oximetry 97 100 Oxygen Delivery Method Nasal Cannula Oxygen Flow Rate 0 Narrative Exam Narrative: 69 year old female lying comfortably in bed in no apparent distress. A&Ox3. Dressing has moderate drainage. SCDs in place. Able to actively dorsiflex/plantar flex BL. Sensory function grossly intact to light touch in LE BL. Capillary refill <2sec in LE BL. Calves warm, soft, compressible, non tender to palpation BL. Objective Labs Result Diagrams: 09/09/19 04:40 Labs: Laboratory Results - last 24 hr 09/09/19 04:40 Hgb 10.6 L Hct 30.3 L Assessment & Plan Post-op Postoperative Procedures: Procedures Operation Date: 09/08/19 08:45 Actual Procedures Side Surgeon p L4-5,L5-S1 TLIF W/ Posterior Instrumentation Luis Larkin MD Postoperative day: 1 Postoperative status: doing well Postoperative plan narrative: Pain management - patient reports 8/10, was in no distress during assessment, patient hesitant to change pain medications because of hallucinations with other narcotics - continue current pain management, if pain does not improve, will consider dilaudid PO in AM Continue PT Continue SCDs for DVT prophylaxis Patient will most likely discharge home tomorrow Time Spent With Patient Time with patient: less than 15 minutes Quality VTE Deep Vein Thrombosis/Pulmonary Embolism Present on Admission: No
[2019-09-09] MEDS: HYDROMORPHONE 0.5 MG INJ IV (21:12)
[2019-09-09] MEDS: SENNOSIDES 8.6 MG TABLET 17.2 MG PO (21:15)
[2019-09-09] MEDS: ATORVASTATIN 20 MG TABLET PO (21:16)
[2019-09-09] MEDS: AMITRIPTYLINE 25 MG TABLET PO (21:21)
[2019-09-10] VITALS (15 sets, daily range): BP systolic 71–112; BP diastolic 34–72; PULSE 62–88; RESP 14–62; TEMP 35.9–36.8; O2SAT 94–100
[2019-09-10] MEDS: hydrOXYzine pamoate 25 MG CAPSULE PO (00:51)
[2019-09-10] MEDS: OXYCODONE IR 10 MG TABLET PO ×2 (00:51→04:01)
--- NOTE | 2019-09-10 01:57 | PC.NURSE ---
Prepress Specialist Note: 0030: Awake, states she is having 8/10 spasm-like pain going down both legs. Assisted to reposition to relieve pain. Vital signs stable. IV in place in rt forearm. SCDs on. 0050: Medicated for pain and spasms with Oxycodone 10mg and Vistaril 25mg po. Pt states she gets leg spasms at home and takes an [id number] medication that helps her.
--- NOTE | 2019-09-10 07:50 | PM.PNPO.1 ---
Subjective Subjective Date Patient Seen: 09/10/19 Time Patient Seen: 16:27 Interval history: POD #2 s/p L4-5, L5-S1 TLIF with Dr. Larkin. No acute events overnight. Patient reports 8/10 pain at rest. Pain is managed with tylenol and oxycodone. Oxycodone was reduced from 10mg to 5mg because patient was somnolent. Patient has been hypotensive overnight (EBL 100mL - blood pressure medication and vistaril held. Progression with PT has been slow secondary to hypotension. Voiding without difficulty or assistance. Denies fever, chills, chest pain, shortness of breath, nausea, vomiting, pain in calves, urinary/bowel incontinence Exam Vital Signs (past 8 hours): - 09/10/19 00:00 09/10/19 04:00 09/10/19 07:30 Temperature 96.7 F L 96.7 F L 98.3 F Pulse Rate 70 62 63 Respiratory Rate 16 62 H 14 Blood Pressure 102/50 L 91/49 L 82/48 L Pulse Oximetry 95 94 95 Oxygen Delivery Method Nasal Cannula Oxygen Flow Rate 0 Narrative Exam Narrative: 69 year old female lying comfortably in bed in no apparent distress. A&Ox3. Dressing has moderate drainage. SCDs in place. Able to actively dorsiflex/plantar flex BL. Sensory function grossly intact to light touch in LE BL. Capillary refill <2sec in LE BL. Calves warm, soft, compressible, non tender to palpation BL. Objective Labs Result Diagrams: 09/11/19 11:19 09/11/19 11:19 Assessment & Plan Post-op Postoperative Procedures: Procedures Operation Date: 09/08/19 08:45 Actual Procedures Side Surgeon p L4-5,L5-S1 TLIF W/ Posterior Instrumentation Luis Larkin MD Postoperative plan narrative: BP - hold BP meds and vistaril Bolus 500 NS w LR cc, if non responsive, bolus an additional 500cc Continue SCDs Mobilize with PT Continue current pain management Discharge likely tomorrow Time Spent With Patient Time with patient: less than 15 minutes Quality VTE Deep Vein Thrombosis/Pulmonary Embolism Present on Admission: No
[2019-09-10] MEDS: LACTATED RINGERS 1,000 ML 1000 ML IV (08:16)
[2019-09-10] MEDS: DOCUSATE 100 MG CAPSULE PO ×2 (08:23→22:29)
[2019-09-10] MEDS: MAGNESIUM OXIDE 400 MG TABLET PO (08:26)
--- NOTE | 2019-09-10 09:25 | PC.NURSE ---
0900-This BOILER PLANT WORKER walked by and noticed pt had spilled her drink on the ground. I confirmed that none spilled on her and she said, I dozed off. Notified RN as well as housekeeping and I cleaned up as much as possible. I also placed slip resistant socks on pt as she was in her own socks.
--- NOTE | 2019-09-10 09:42 | PC.NURSE ---
Addendum entered by Romelia De La Rosa R.N. 09/10/19 14:20: additional bolus of 500mls ordered for continued hypotension. PA Following, last BP 112/57 , continued pain control with decreased oxycodone dosing and holding vistaril. Pt was falling asleep with coffee in hand earlier in shift, we will monitor oxycodone dosing closely. UPdated Pt spouse that d/c highly unlikely today. Addendum entered by Romelia De La Rosa R.N. 09/10/19 11:13: Pt able to participate in PT with improved BPs 110's/60's. IV Sl. at bedside. Original Note: Am shift Pt is a/o though drowsy this AM. Holding off on pain meds as of yet, rating pain 2/10 at rest. BP low, order for bolus from PA 1st 500 ml given and no response with BP second 500mls given. Call into PA, BP remains 83/59. Feet elevated and Pt is up in chair, planning to work with PT and this AM, but d/t BP will hold off on this for now. Pt denies dizziness, assist of 1 FWW to bed.
--- NOTE | 2019-09-10 10:05 | PT.IPTN ---
Current Diagnoses Other secondary scoliosis, lumbar region (09/08/19) Other spondylosis with radiculopathy, lumbosacral region (09/08/19) Spinal stenosis, lumbar region without neurogenic claudication (09/08/19) Surgery Performed Operation Date: 09/08/19 08:45 Actual Procedures p L4-5,L5-S1 TLIF W/ Posterior Instrumentation - Luis Larkin MD Physical Therapy Treatment Note M2 PT-IP Current Condition Start: 09/09/19 12:55 Freq: NEEDED Status: Active Protocol: Document 09/09/19 10:42 AB (Rec: 09/09/19 13:12 AB [id number]) Physical Therapy Current Condition Current Condition Evaluation Date 09/09/19 Treatment Diagnosis s/p L4-5 L5S1 posterior fusion /lami; difficulty in walking Onset Date 09/08/2019 Precautions Lumbar Precautions Log Roll,No Twisting,Limit Bending,Lifting Restriction of 10 lbs,Gait Belt above Incisional Area M3 PT-IP Subjective Start: 09/09/19 12:55 Freq: NEEDED Status: Active Protocol: Document 09/10/19 10:05 AB (Rec: 09/10/19 10:50 AB [id number]) Subjective Physical Therapy Visit Type Type Treatment Note Visit Start Time 10:05 Visit Stop Time 10:32 Total Visit Minutes 27 Number of PLASTICS NURSE Visits 0 Physical Therapy Visit Comments Patient Comments pt stated that she had a bad night and did not sleep well Therapy Pain Assessment Pain When Pain Assessed At Rest Pain Present Pain Present Pain Reported Location back Intensity 8 Scale Used Numeric (1 - 10) Pain Management Techniques Timing of Activity with Medications M4 PT-IP Mobility and Gait Start: 09/09/19 12:55 Freq: NEEDED Status: Active Protocol: Document 09/10/19 10:05 AB (Rec: 09/10/19 10:50 AB [id number]) PT-Bed Mobility Assessment Supine to Sit Supine to Sit Minimal Assistance,1 Person Assistance Sit to Supine Sit to Supine Standby Assistance,1 Person Assistance Scooting Scooting to Edge of Bed Standby Assistance PT-Transfer Assessment Sit to and From Stand Sit to and from Stand Contact Guard Assistance,1 Person Assistance Comments Mobility Comments nurse stated that pt's BP has been low but was given saline bolus and is better. pt stated that she is tired but agreed to do PT. caregiver training initiated. reviewed back precautions with pt and spouse. educated spouse on how to use safety belt and how to assist pt. BP in supine: 103/55. pt completed bed mobility supine to sit min A. spouse requires further training. pt was able to sit on EOB SBA. sitting BP: 94/53. spouse was able to put safety belt on pt . pt completed sit to stand CGA with spouse assisting. BP checked in standin/45. instructed pt to sit down. pt scooted towards HOB SBA and completed sit to stand SBA and cues for techniques. positioned pt in bed. BP checked: 100/54. call light and table placed within reach. left pt with spouse. M5 PT-IP Objective Assessments Start: 09/09/19 12:55 Freq: NEEDED Status: Active Protocol: Document 09/09/19 10:42 AB (Rec: 09/09/19 13:12 AB [id number]) Orientation Orientation/Cognition Level of Alertness Alert Orientation Name,Place,Situation Language Function Ability Hard of Hearing Gross Range of Motion Lower Extremity ROM Assessment Within Functional Limits Strength Comments Strength Comments RLE 3+/5 LLE 4-/5 Coordination Assessment Gross Coordination Gross Coordination WNL Sensation Assessment Sensation Gross Sensation WNL Muscle Tone Muscle Tone WNL Yes M6 PT-IP Treatment Start: 09/09/19 12:55 Freq: NEEDED Status: Active Protocol: Document 09/10/19 10:05 AB (Rec: 09/10/19 10:50 AB [id number]) Physical Therapy Treatment Education Education Provided Precautions,Safety M7 PT-IP Assessment and Plan Start: 09/09/19 12:55 Freq: NEEDED Status: Active Protocol: Document 09/10/19 10:05 AB (Rec: 09/10/19 10:50 AB [id number]) PT Summary Assessment and Plan Potential Rehabilitation Potential Good Summary Impairments Pain,ROM,Strength,Balance, Coordination,Sensation,Tone, Cognition,Bed Mobility, Transfers,Gait,Activity Tolerance Progress Towards Goals Slow Progress due to Medical Issues,Slow Progress due to Activity Tolerance Assessment Summary caregiver training initiated but further training is required. pt did not tolerate much activity today with decrease in BP in standing. d /c plan is to go home with spouse assisting. will continue to assess progress. Goals Bed Mobility Goal Standby Assistance Transfer Goal Standby Assistance,Front Wheeled Walker Gait Goal Standby Assistance,Front Wheel Walker Gait Distance 150 Other Goals up/down 2 steps L rail ascending SBA Days to Meet Goals 5 Frequency of Treatment Frequency Of Treatment Twice a Day Treatment Plan Physical Therapy Treatment Plan Bed Mobility Training,Transfer Training,Gait Training, Therapeutic Exercise,Balance Retraining,Post Op Education, Discharge Planning,Hot or Cold Pack,Neuromuscular Re-ed, Coordination Retraining,Manual Therapy Other Recommendations and Next Treatment ambulation, bed moblity, Focus caregiver training Recommendations To Nursing Amount of Assist Needed 1 Person Assist Discharge Recommendations PT Discharge Recommendations Home with Assistance
[2019-09-10] MEDS: OXYCODONE IR 5 MG TABLET PO ×3 (10:15→17:31)
[2019-09-10] MEDS: LACTATED RINGERS 500 ML 1000 ML IV (12:00)
--- NOTE | 2019-09-10 12:10 | OT.IP.TRT ---
Current Diagnoses Other secondary scoliosis, lumbar region (09/08/19) Other spondylosis with radiculopathy, lumbosacral region (09/08/19) Spinal stenosis, lumbar region without neurogenic claudication (09/08/19) Surgery Performed Operation Date: 09/08/19 08:45 Actual Procedures p L4-5,L5-S1 TLIF W/ Posterior Instrumentation - Luis Larkin MD Occupational Therapy Treatment Note M2 OT-IP Current Condition Start: 09/09/19 13:31 Freq: Status: Active Protocol: Document 09/09/19 15:14 PJM (Rec: 09/09/19 17:06 PJM [id number]) Occupational Therapy Current Condition Current Condition Evaluation Date 09/09/19 Treatment Diagnosis decreased self care, mobility s/p L4-s1 TLIF with posterior instrumentation Diagnosis Onset Date 09/08/19 Post Operative Precautions Lumbar Precautions Log Roll M3 OT- IP Subjective and Pain Start: 09/09/19 13:31 Freq: Status: Active Protocol: Document 09/10/19 12:16 [facility] (Rec: 09/10/19 12:26 [facility] [id number]) OT- Subjective Occupational Therapy Visit Type Type Treatment Note Visit Start Time 11:00 Visit Stop Time 12:10 Total Visit Minutes 48 Notes Saw pt [id number] and then for 1205 to 1210 to touch base with pt's for caregiver training. Occupational Therapy Visit Comments Patient Comments Pt wanting to sponge off at the sink. Patient/Caregiver Goals To go home today. OT Pain Assessment Pain When Pain Assessed At Rest Pain Present Pain Present Pain Reported Location back Intensity 6 Scale Used Numeric (1 - 10) M4 OT- IP ADL's Start: 09/09/19 13:31 Freq: Status: Active Protocol: Document 09/10/19 12:16 [facility] (Rec: 09/10/19 12:26 [facility] [id number]) OT [id number] General Evaluation Self-Feeding Ability Independent OT ADL-Grooming General Evaluation Grooming Ability Standby Assistance Areas Needing Assistance Retrieving/Set-up of Grooming Items Comments OT Grooming Comments Reminders not to twist. OT ADL-Oral Care Comments Oral Care Comments did not occur this session OT ADL-Dressing General Eval Upper Body Dressing Ability Independent Lower Body Dressing Ability Standby Assistance Areas Needing Assistance Underpants/Brief,Socks Assistive Devices Dressing Assistive Devices Long Handled Shoe Horn,Blackjack Pit Boss ,Sock Aid Comments OT Dressing Comments Pt needing reminders to sit down in order to ama/doff brief. OT ADL-Toileting General Evaluation Toileting Ability Standby Assistance Comments OT Toileting Comments Practiced and pt able to stand to wipe however also able to show good safety to lean to the side and able to wipe without twisting. OT ADL-Bathing Bathing Type Bathing Type Sponge Bath General Evaluation Bathing Ability Contact Guard Assistance Comments OT Bathing Comments CGA for balance while standing to do pericare needs. Pt able to sponge off while standing and sitting in front of the sink. Pt able to comfortably cross her legs over to wash or educated for or use of talent acquisition director to assist. M5 OT- IP IADL's Start: 09/09/19 13:31 Freq: Status: Active Protocol: Document 09/09/19 15:14 PJM (Rec: 09/09/19 17:06 PJM [id number]) OT-Instrumental Activities of Daily Living Deficits IADL Deficits Identified Deficits Home Safety Awareness Awareness of Need for Assistance at Home Good Awareness Ability to Problem Solve Emergency Able to Problem Solve Situations Medication Management Medication Management No Deficits Identified Money Management Money Management No Deficits Identified Meal Preparation Meal Preparation Caregiver Provides Assist Meal Preparation Comments S.O. to assist until pt able Processing Tal[employer] Supervisor Processing [employer] Supervisor Caregiver Provides Assist Processing [employer] Supervisor Comments S.O. to assist until pt able Driving Driving Caregiver Provides Assist Driving Comments S.O. to assist until pt able M6 OT- IP Functional Cognition Start: 09/09/19 13:31 Freq: Status: Active Protocol: Document 09/10/19 12:16 [facility] (Rec: 09/10/19 12:26 [facility] [id number]) Cognitive Factors Limiting Selfcare Function Cognitive Ability Level of Alertness Alert Patient Orientation Name,Age,Birthday,Month,Date, Year,Day of Week,Place, Situation Attention Span Ability Capable of Focused Attention, Capable of Sustained Attention Ability to Follow Commands Able to Follow Multi-Step Commands Memory Description No Deficits Noted Safety Awareness Underestimates Need for Assistance Problem Solving Ability Needs Assist to Identify Solutions Cognitive Comments Cognitive Assessment Comments Pt needing cues to help incorporate back precautions as tends to twist at times to reach for items, or tries to hold onto objects as the same time as use of FWW. Educated to do one thing at a time. Educated pt's to help supervision pt for back precautions during needs. M7 OT- IP Mobility and Balance Start: 09/09/19 13:31 Freq: Status: Active Protocol: Document 09/10/19 12:16 [facility] (Rec: 09/10/19 12:26 [facility] [id number]) OT- Bed Mobility Assessment Rolling Type of Rolling Roll to Right Supine to Sit Supine to Sit Assist Standby Assistance Sit to Supine Sit to Supine Assist Standby Assistance OT-Transfer Assessment Sit to and From Stand Sit to and from Stand Standby Assistance,Contact Guard Assistance Transfers Transfer Ability Standby Assistance,Contact Guard Assistance Technique Transfer Destination Bed,Chair,Toilet Devices Transfer Assistive Devices Gait Belt,Front Wheeled Walker Comments Mobility Comments Pt needing reminders to push up from the surface sitting on versus grabbing the FWW. OT- Balance Assessment Sitting Balance and Reactions Static Sitting Balance Ability Normal Dynamic Sitting Balance Ability Normal Standing Balance and Reactions Static Standing Balance Ability Good Dynamic Standing Balance Ability Fair Comments Other Balance Tests/Deviations/Treatment Pt's BP in supine 97/50, : sitting 99/49, and standing 100/50. M8 OT- IP Objective Assessments Start: 09/09/19 13:31 Freq: Status: Active Protocol: Document 09/09/19 15:14 PJM (Rec: 09/09/19 17:06 PJM [id number]) OT Gross Range of Motion Upper Extremity Range of Motion Assessment Within Functional Limits OT Strength Upper Extremity Strength Assessment Within Functional Limits Hand Medical File Clerk Strength Hand Dominance Left OT- Coordination Assessment Comments Coordination Comments BUE WNL OT Sensation Assessment Comments Summary Comments BUE WNL Edema Edema Absent M9 OT- IP Assessment and Plan Start: 09/09/19 13:31 Freq: Status: Active Protocol: Document 09/09/19 15:14 PJM (Rec: 09/09/19 17:06 PJ [id number]) OT Summary Assessment and Plan Potential Rehabilitation Potential Excellent Analytic Complexity at Evaluation Low Summary OT Impairments Pain,Functional Mobility, Dressing,Toileting,Bathing, Toilet Transfers,Shower Transfers,Activity Tolerance Assessment Summary Low complexity OT assessment completed on this 69 yr old woman admitted for L4-S1 TLIF. Pt is normally completely independent with all ADLS, IADLS, driving. Pt presents with mild performance deficits in functional mobility and self care due to post operative pain. Provided education re: lumbar spine precautions, posture, optimal chair selection, adapted techniques for lower body dressing and toileting, bathroom safety equipment options and car transfers. Plan 1 additional OT tx for further ADL training. Anticipate pt will d/c home tomorrow with assist from working S.O. and friends. Goals Grooming Goal Independent Dressing Goal Independent Toileting Goal Independent Toilet Transfer Goal Independent,Raised Toilet Seat Patient/Caregiver Education Goal Demonstrate Post-Op Precautions,Demonstrate Energy Conservation and Pacing, Caregiver Independent Assisting Patient Days to Meet Goals 1 Frequency of Treatment Frequency Of Treatment Once a Day Treatment Plan OT Treatment Plan ADL Training,Functional Mobility,Patient/Family Education,Discharge Planning Discharge Recommendations OT Discharge Recommendations Home with Assistance Transportation Needs at Discharge Private Vehicle
[2019-09-10] MEDS: ACETAMINOPHEN 325 MG TABLET 650 MG PO ×2 (13:44→22:28)
--- NOTE | 2019-09-10 16:32 | PT.IPTN ---
Current Diagnoses Other secondary scoliosis, lumbar region (09/08/19) Other spondylosis with radiculopathy, lumbosacral region (09/08/19) Spinal stenosis, lumbar region without neurogenic claudication (09/08/19) Surgery Performed Operation Date: 09/08/19 08:45 Actual Procedures p L4-5,L5-S1 TLIF W/ Posterior Instrumentation - Luis Larkin MD Physical Therapy Treatment Note M2 PT-IP Current Condition Start: 09/09/19 12:55 Freq: NEEDED Status: Active Protocol: Document 09/09/19 10:42 AB (Rec: 09/09/19 13:12 AB [id number]) Physical Therapy Current Condition Current Condition Evaluation Date 09/09/19 Treatment Diagnosis s/p L4-5 L5S1 posterior fusion /lami; difficulty in walking Onset Date 09/08/2019 Precautions Lumbar Precautions Log Roll,No Twisting,Limit Bending,Lifting Restriction of 10 lbs,Gait Belt above Incisional Area M3 PT-IP Subjective Start: 09/09/19 12:55 Freq: NEEDED Status: Active Protocol: Document 09/10/19 16:32 AB (Rec: 09/10/19 17:31 AB [id number]) Subjective Physical Therapy Visit Type Type Treatment Note Visit Start Time 16:32 Visit Stop Time 17:05 Total Visit Minutes 33 Number of STUFFER Visits 0 Physical Therapy Visit Comments Patient Comments pt initially refusing PT. concerned about low BP. checked on pt again later on the afternoon and pt agreed to do PT. Therapy Pain Assessment Pain When Pain Assessed At Rest Pain Present Pain Present Pain Reported Location back Intensity 5 Scale Used Numeric (1 - 10) Pain Management Techniques Apply Cold,Re-positioning, Timing of Activity with Medications M4 PT-IP Mobility and Gait Start: 09/09/19 12:55 Freq: NEEDED Status: Active Protocol: Document 09/10/19 16:32 AB (Rec: 09/10/19 17:31 AB [id number]) PT-Transfer Assessment Sit to and From Stand Sit to and from Stand Contact Guard Assistance,1 Person Assistance,Use of Upper Extremities Equipment Transfer Assistive Device Gait Belt,Front Wheeled Walker Orthotic/Prosthetic Devices or Brace: No Transfers Transfer Destination Chair Transfer Technique ambulated using FWW Comments Mobility Comments Pt sitting on EOB with nursing and pt want to walk with PT. BP sitting on EOB: 108/52. completed sit to stand CGA. BP checked: 92/50. pt was able to maintain standing using FWW SBA to CGA. checked pt again after ~ 2 min : 101/55. pt ambulated in room using FWW CGA ~ 25 ft. No complaints of dizziness/ lightheadedness. BP checked after walkin/54. pt rested for a few minutes and agreed to walk again. BP checked prior to ambulation: 105/55. Pt ambulated in the hallway using FWW CGA ~ 125 ft . BP checked after ambulation sitting on chair: 96/51. positioned pt on chair. call light and table placed within reach. Gait Assessment Gait Gait Assistance Required: Contact Guard Assist Distance (Feet) 125 Able to Maintain Weight Bearing Status Yes During Gait Assistive Devices Assistive Device Gait Belt,Front Wheeled Walker Orthotic/Prosthetic Devices or Brace: No Gait Deviations General Gait Pattern Antalgic,Decreased Stride Length,Decreased Feet Clearance Factors Limiting Gait Function Factors Limiting Gait Function Decreased Activity Tolerance, Decreased Strength,Limited Range of Motion,Pain,Poor Balance,Poor Safety Awareness Comments Gait Comments pls refer to mobility section for details M5 PT-IP Objective Assessments Start: 09/09/19 12:55 Freq: NEEDED Status: Active Protocol: Document 09/09/19 10:42 AB (Rec: 09/09/19 13:12 AB [id number]) Orientation Orientation/Cognition Level of Alertness Alert Orientation Name,Place,Situation Language Function Ability Hard of Hearing Gross Range of Motion Lower Extremity ROM Assessment Within Functional Limits Strength Comments Strength Comments RLE 3+/5 LLE 4-/5 Coordination Assessment Gross Coordination Gross Coordination WNL Sensation Assessment Sensation Gross Sensation WNL Muscle Tone Muscle Tone WNL Yes M6 PT-IP Treatment Start: 09/09/19 12:55 Freq: NEEDED Status: Active Protocol: Document 09/10/19 16:32 AB (Rec: 09/10/19 17:31 AB [id number]) Physical Therapy Treatment Education Education Provided Precautions,Safety M7 PT-IP Assessment and Plan Start: 09/09/19 12:55 Freq: NEEDED Status: Active Protocol: Document 09/10/19 16:32 AB (Rec: 09/10/19 17:31 AB [id number]) PT Summary Assessment and Plan Potential Rehabilitation Potential Good Summary Impairments Pain,ROM,Strength,Balance, Coordination,Sensation,Tone, Cognition,Bed Mobility, Transfers,Gait,Activity Tolerance Progress Towards Goals Slow Progress due to Activity Tolerance Assessment Summary pt progresssing slowly with mobility due to decrease activity tolerance with decrease in BP. pt continues to have low BP but tolerate more this afternoon that this morning. caregiver training will be conducted again and also has to complete stair climbing next tx session if appropriate. will continue to assess progress for safe d/c. Goals Bed Mobility Goal Standby Assistance Transfer Goal Standby Assistance,Front Wheeled Walker Gait Goal Standby Assistance,Front Wheel Walker Gait Distance 150 Other Goals up/down 2 steps L rail ascending SBA Days to Meet Goals 5 Frequency of Treatment Frequency Of Treatment Twice a Day Treatment Plan Physical Therapy Treatment Plan Bed Mobility Training,Transfer Training,Gait Training, Therapeutic Exercise,Balance Retraining,Post Op Education, Discharge Planning,Hot or Cold Pack,Neuromuscular Re-ed, Coordination Retraining,Manual Therapy Other Recommendations and Next Treatment ambulation, bed moblity, Focus caregiver training Recommendations To Nursing Amount of Assist Needed 1 Person Assist Discharge Recommendations PT Discharge Recommendations Home with Assistance Transportation Needs at Discharge Private Vehicle
--- NOTE | 2019-09-10 18:30 | PC.NURSE ---
Evening Shift Note: Pt initially sleeping. BP just after waking was 79/38 at 1530. BP gradually increasing to 98/47 by 1600. Pt complaining of pain, 10/10 at this time. No pain medication available at this time beside iv dilaudid, not given d/t pt's low BP. Pt also complained of numbness and radiating pain in BLE, pt reported that she had only experienced this pain in her RLE prior to surgery. Pt walked with PT around the unit, sat up in chair for dinner, then was helped back to bed after getting 5 mg po oxycodone. When pt was OOB, pain was rated 6/10, tolerable. Once pt was back in bed again, pain was up to 10/10, no oxycodone available, BP at that time was 98/51. Pt given 0.5 mg iv dilaudid, with pt stating pain was gone. Pt with BP rechecked after dilaudid and 69/48 at 1900, pt checked on and BP rechecked with BP 89/50 (MAP 64) at 1905. Discussed pt's sensitivity to dilaudid IV and that pt will no longer be receiving iv dilaudid. Pt is now resting in bed comfortably. Will continue to monitor, notify MD with changes.
[2019-09-10] MEDS: HYDROMORPHONE 0.5 MG INJ IV (18:54)
[2019-09-10] MEDS: ATORVASTATIN 20 MG TABLET PO (22:29)
[2019-09-10] MEDS: OXYCODONE IR 5 MG TABLET 10 MG PO (22:29)
[2019-09-10] MEDS: SENNOSIDES 8.6 MG TABLET 17.2 MG PO (22:29)
[2019-09-10] MEDS: AMITRIPTYLINE 25 MG TABLET PO (22:30)
--- NOTE | 2019-09-10 23:47 | PC.NURSE ---
Evening Shift Note: Dr. Olvera contacted to notify MD about pt's continued transient low BP. Also discussed pt's numbness and radiating pain in BLE and preop only R leg affected. This RN requested non-narcotic pain medication. Okayed to give oxycodone even if pt has been having transient hypotension.
[2019-09-11] VITALS: BP 72/40; PULSE 78; RESP 18; TEMP 36.6; O2SAT 92
[2019-09-11 00:08] VITALS: BP 104/47
[2019-09-11 00:09] VITALS: BP 104/47
[2019-09-11 05:33] VITALS: BP 105/52; PULSE 64; RESP 16; TEMP 36.6; O2SAT 95
--- NOTE | 2019-09-11 06:12 | PC.NURSE ---
assumed care of pt around 0200 Vitals stable. SBP soft in low 100s Denied pain meds this morning Stated to previous RN that her Left leg numbness is new
[2019-09-11 08:23] VITALS: BP 127/55; PULSE 81; RESP 16; TEMP 36.1; O2SAT 98
[2019-09-11] MEDS: OXYCODONE IR 5 MG TABLET PO ×2 (08:36→12:07)
[2019-09-11] MEDS: DOCUSATE 100 MG CAPSULE PO (08:37)
[2019-09-11] MEDS: MAGNESIUM OXIDE 400 MG TABLET PO (08:38)
--- NOTE | 2019-09-11 10:07 | PT.IPTN ---
Current Diagnoses Other secondary scoliosis, lumbar region (09/08/19) Other spondylosis with radiculopathy, lumbosacral region (09/08/19) Spinal stenosis, lumbar region without neurogenic claudication (09/08/19) Surgery Performed Operation Date: 09/08/19 08:45 Actual Procedures p L4-5,L5-S1 TLIF W/ Posterior Instrumentation - Luis Larkin MD Physical Therapy Treatment Note M2 PT-IP Current Condition Start: 09/09/19 12:55 Freq: NEEDED Status: Active Protocol: Document 09/09/19 10:42 AB (Rec: 09/09/19 13:12 AB [id number]) Physical Therapy Current Condition Current Condition Evaluation Date 09/09/19 Treatment Diagnosis s/p L4-5 L5S1 posterior fusion /lami; difficulty in walking Onset Date 09/08/2019 Precautions Lumbar Precautions Log Roll,No Twisting,Limit Bending,Lifting Restriction of 10 lbs,Gait Belt above Incisional Area M3 PT-IP Subjective Start: 09/09/19 12:55 Freq: NEEDED Status: Active Protocol: Document 09/11/19 10:07 AB (Rec: 09/11/19 13:31 AB [id number]) Subjective Physical Therapy Visit Type Type Treatment Note Visit Start Time 10:07 Visit Stop Time 11:02 Total Visit Minutes 55 Number of LACROSSE COACH Visits 0 Physical Therapy Visit Comments Patient Comments pt agreeable to do PT Therapy Pain Assessment Pain When Pain Assessed At Rest Pain Present Pain Present Pain Reported Location back Intensity 7 Scale Used Numeric (1 - 10) Pain Management Techniques Re-positioning,Timing of Activity with Medications M4 PT-IP Mobility and Gait Start: 09/09/19 12:55 Freq: NEEDED Status: Active Protocol: Document 09/11/19 10:07 AB (Rec: 09/11/19 13:31 AB [id number]) PT-Bed Mobility Assessment Rolling Level of Assist Standby Assistance Supine to Sit Supine to Sit Standby Assistance PT-Transfer Assessment Sit to and From Stand Sit to and from Stand Standby Assistance,Contact Guard Assistance Equipment Transfer Assistive Device Gait Belt,Front Wheeled Walker Orthotic/Prosthetic Devices or Brace: No Transfers Transfer Destination Chair Transfer Technique ambulated using FWW Transfer Ability Level of Assist Contact Guard Assistance,1 Person Assistance,Use of Upper Extremities Comments Mobility Comments BP in supine: 89/53. Pt asymptomatic. caregiver training conducted. spouse was able to assist pt with bed mobility, sit to stand ambulation. BP sitting on EOB : 88/44. pt sat on EOB for ~ 2-3 min and BP checked again: 117/51. completed sit to stand with spouse assisting CGA. BP in standin/52. pt ambulated in room ~ 50 ft using FWW and sat on chair. BP checked: 93/48. pt rested for a few more minutes 110/54. pt without c/o dizziness/ lightheadedness. pt agreed to ambulate out in the hallway and do stair. BP checked again prior to walkin/56 . pt ambulated using FWW ~ 100 ft. with spouse assisting. assisted towards the stairs. completed up/down steps using L rail with pt holding on with B hands. pt assisted back to her room. agreed to sit up on chair. ambulated from w/c to chair using FWW SBA. positioned on chair. call light and table placed within reach. BP: 104/ 52. Left pt with spouse. informed nurse regarding pt's mobility and BP. Gait Assessment Gait Gait Assistance Required: Standby Assistance,Contact Guard Assist Distance (Feet) 100 Able to Maintain Weight Bearing Status Yes During Gait Assistive Devices Assistive Device Gait Belt,Front Wheeled Walker Orthotic/Prosthetic Devices or Brace: No Gait Deviations General Gait Pattern Antalgic,Decreased Stride Length,Decreased Feet Clearance Factors Limiting Gait Function Factors Limiting Gait Function Decreased Activity Tolerance, Decreased Strength,Limited Range of Motion,Pain,Poor Balance Comments Gait Comments pls refer to mobility section for details Stair Climbing Assessment Evaluation Level of Assist On Stairs Contact Guard Assistance Devices Stair Climbing Assistive Devices Left Railing Technique/Endurance Stair Climbing Direction Ascend and Descend Stair Climbing Technique Step to Step Number of Steps Climbed 3 Stair Climbing Set # Repetitions (reps) 2 Comments Stair Climbing Comments instructed pt on how to do steps and spouse on how to assist pt. PT assist pt with 1st set and pt completed CGA with pt holding on to L rail with B hands. Spouse then assisted pt on 2nd set and completed safely. M5 PT-IP Objective Assessments Start: 09/09/19 12:55 Freq: NEEDED Status: Active Protocol: Document 09/09/19 10:42 AB (Rec: 09/09/19 13:12 AB [id number]) Orientation Orientation/Cognition Level of Alertness Alert Orientation Name,Place,Situation Language Function Ability Hard of Hearing Gross Range of Motion Lower Extremity ROM Assessment Within Functional Limits Strength Comments Strength Comments RLE 3+/5 LLE 4-/5 Coordination Assessment Gross Coordination Gross Coordination WNL Sensation Assessment Sensation Gross Sensation WNL Muscle Tone Muscle Tone WNL Yes M6 PT-IP Treatment Start: 09/09/19 12:55 Freq: NEEDED Status: Active Protocol: Document 09/11/19 10:07 AB (Rec: 09/11/19 13:31 AB [id number]) Physical Therapy Treatment Education Education Provided Precautions,Safety M7 PT-IP Assessment and Plan Start: 09/09/19 12:55 Freq: NEEDED Status: Active Protocol: Document 09/11/19 10:07 AB (Rec: 09/11/19 13:31 AB [id number]) PT Summary Assessment and Plan Potential Rehabilitation Potential Good Summary Impairments Pain,ROM,Strength,Balance,Bed Mobility,Transfers,Gait, Activity Tolerance Progress Towards Goals Slow Progress due to Medical Issues Assessment Summary pt's BP remains low but stable and pt does not complain of any symptoms. caregiver training conducted and spouse was able to assist pt safety with bed mobility, transfers, ambulation and stair climbing. pt may go home when medically stable. Goals Bed Mobility Goal Standby Assistance Transfer Goal Standby Assistance,Front Wheeled Walker Gait Goal Standby Assistance,Front Wheel Walker Gait Distance 150 Other Goals up/down 2 steps L rail ascending SBA Days to Meet Goals 5 Frequency of Treatment Frequency Of Treatment Twice a Day Treatment Plan Physical Therapy Treatment Plan Bed Mobility Training,Transfer Training,Gait Training, Therapeutic Exercise,Balance Retraining,Post Op Education, Discharge Planning,Hot or Cold Pack,Neuromuscular Re-ed, Coordination Retraining,Manual Therapy Other Recommendations and Next Treatment ambulation, bed moblity, Focus caregiver training Recommendations To Nursing Amount of Assist Needed 1 Person Assist Discharge Recommendations PT Discharge Recommendations Home with Assistance Transportation Needs at Discharge Private Vehicle
[2019-09-11 11:27] LABS: Add Manual Diff / Slide Review NO; Basophils Absolute Auto 0 /uL (0-100); Basophils Percent Auto 0.3 % (0-2); Eosinophils Absolute Auto 100 /uL (0-450); Eosinophils Percent Auto 1.7 % (2-4); Hematocrit 26.4 % (36-46); Hemoglobin 9.2 g/dL (12.0-16.0); Lymphocytes Absolute Auto 1200 /uL (1100-4500); Lymphocytes Percent Auto 16.9 % (25-40); Mean Corpuscular HGB Conc 34.7 % (30-36); Mean Corpuscular Hemoglobin 32.9 PG (26-34); Mean Corpuscular Volume 94.9 fL (80-100); Monocytes Absolute Auto 400 /uL (0-900); Monocytes Percent Auto 5.2 % (3-14); Neutrophils Absolute Auto 5200 /uL (1500-7000); Neutrophils Percent Auto 75.9 % (50-75); Platelet Count 141 X10^3/uL (150-400); Red Blood Cell Count 2.78 X10^6/uL (4.0-5.2); Red Cell Distribution Width 13.4 % (11.6-14.8); White Blood Cell Count 6.9 X10^3/uL (4.5-11.0)
[2019-09-11 11:48] LABS: Alanine Aminotransferase 57 IU/L (<35); Albumin 3.5 g/dL (3.5-5.0); Albumin Globulin Ratio 1.2 (1.0-2.8); Alkaline Phosphatase 174 U/L (38-126); Aspartate Aminotransferase 58 IU/L (14-36); BUN Creatinine Ratio 17.8 (6-22); Bilirubin Total 0.6 mg/dL (0.2-1.3); Blood Urea Nitrogen 16 mg/dL (7-17); Calcium 9.2 mg/dL (8.4-10.2); Carbon Dioxide 36 mmol/L (22-32); Chloride 100 mmol/L (98-107); Estimated Glomerular Filt Rate > 60.0 mL/min (>60); Glucose 116 mg/dL (80-110); HEMOLYSIS < 15 (0-50); Potassium 4.1 mmol/L (3.4-5.1); Sodium 139 mmol/L (137-145); Total Protein 6.5 g/dL (6.3-8.2)
[2019-09-11 12:00] VITALS: BP 120/50; PULSE 70; RESP 16; TEMP 36.8; O2SAT 100
[2019-09-11] MEDS: ACETAMINOPHEN 325 MG TABLET 650 MG PO (12:37)
--- NOTE | 2019-09-11 12:55 | OT.IP.TRT ---
Current Diagnoses Other secondary scoliosis, lumbar region (09/08/19) Other spondylosis with radiculopathy, lumbosacral region (09/08/19) Spinal stenosis, lumbar region without neurogenic claudication (09/08/19) Surgery Performed Operation Date: 09/08/19 08:45 Actual Procedures p L4-5,L5-S1 TLIF W/ Posterior Instrumentation - Luis Larkin MD Occupational Therapy Treatment Note M2 OT-IP Current Condition Start: 09/09/19 13:31 Freq: Status: Active Protocol: Document 09/09/19 15:14 PJM (Rec: 09/09/19 17:06 PJM [id number]) Occupational Therapy Current Condition Current Condition Evaluation Date 09/09/19 Treatment Diagnosis decreased self care, mobility s/p L4-s1 TLIF with posterior instrumentation Diagnosis Onset Date 09/08/19 Post Operative Precautions Lumbar Precautions Log Roll M3 OT- IP Subjective and Pain Start: 09/09/19 13:31 Freq: Status: Active Protocol: Document 09/11/19 13:19 CGR (Rec: 09/11/19 13:24 CGR [email or web address]) OT- Subjective Occupational Therapy Visit Type Type Progress Note Visit Start Time 12:44 Visit Stop Time 12:55 Total Visit Minutes 11 Notes Visit focused on home safety. OT Pain Assessment Pain When Pain Assessed At Rest Pain Present Pain Present Pain Reported Location back Intensity 3 Scale Used Numeric (1 - 10) Management Techniques Re-positioning M4 OT- IP ADL's Start: 09/09/19 13:31 Freq: Status: Active Protocol: Document 09/10/19 12:16 CCC (Rec: 09/10/19 12:26 CCC [id number]) OT [id number] General Evaluation Self-Feeding Ability Independent OT ADL-Grooming General Evaluation Grooming Ability Standby Assistance Areas Needing Assistance Retrieving/Set-up of Grooming Items Comments OT Grooming Comments Reminders not to twist. OT ADL-Oral Care Comments Oral Care Comments did not occur this session OT ADL-Dressing General Eval Upper Body Dressing Ability Independent Lower Body Dressing Ability Standby Assistance Areas Needing Assistance Underpants/Brief,Socks Assistive Devices Dressing Assistive Devices Long Handled Shoe Horn,Judicial Law Clerk ,Sock Aid Comments OT Dressing Comments Pt needing reminders to sit down in order to aam/doff brief. OT ADL-Toileting General Evaluation Toileting Ability Standby Assistance Comments OT Toileting Comments Practiced and pt able to stand to wipe however also able to show good safety to lean to the side and able to wipe without twisting. OT ADL-Bathing Bathing Type Bathing Type Sponge Bath General Evaluation Bathing Ability Contact Guard Assistance Comments OT Bathing Comments CGA for balance while standing to do pericare needs. Pt able to spong off while standing and sitting in front of the sink. Pt able to comfortably cross her legs over to washh or educated for or use of supply chain tech to assist. M5 OT- IP IADL's Start: 09/09/19 13:31 Freq: Status: Active Protocol: Document 09/09/19 15:14 PJM (Rec: 09/09/19 17:06 PJM [id number]) OT-Instrumental Activities of Daily Living Deficits IADL Deficits Identified Deficits Home Safety Awareness Awareness of Need for Assistance at Home Good Awareness Ability to Problem Solve Emergency Able to Problem Solve Situations Medication Management Medication Management No Deficits Identified Money Management Money Management No Deficits Identified Meal Preparation Meal Preparation Caregiver Provides Assist Meal Preparation Comments S.O. to assist until pt able Project Design Engineer Project Design Engineer Caregiver Provides Assist Project Design Engineer Comments S.O. to assist until pt able Driving Driving Caregiver Provides Assist Driving Comments S.O. to assist until pt able M6 OT- IP Functional Cognition Start: 09/09/19 13:31 Freq: Status: Active Protocol: Document 09/10/19 12:16 [facility] (Rec: 09/10/19 12:26 [facility] [id number]) Cognitive Factors Limiting Selfcare Function Cognitive Ability Level of Alertness Alert Patient Orientation Name,Age,Birthday,Month,Date, Year,Day of Week,Place, Situation Attention Span Ability Capable of Focused Attention, Capable of Sustained Attention Ability to Follow Commands Able to Follow Multi-Step Commands Memory Description No Deficits Noted Safety Awareness Underestimates Need for Assistance Problem Solving Ability Needs Assist to Identify Solutions Cognitive Comments Cognitive Assessment Comments Pt needign cues to help incorporate back precautions as tends to twist at times to reach for items, or tries to hold onto objects as the same time as use of FWW. Educated to do one thing at a time. Educated pt's to help superivison pt for back precautions during needs. M7 OT- IP Mobility and Balance Start: 09/09/19 13:31 Freq: Status: Active Protocol: Document 09/10/19 12:16 [facility] (Rec: 09/10/19 12:26 [facility] [id number]) OT- Bed Mobility Assessment Rolling Type of Rolling Roll to Right Supine to Sit Supine to Sit Assist Standby Assistance Sit to Supine Sit to Supine Assist Standby Assistance OT-Transfer Assessment Sit to and From Stand Sit to and from Stand Standby Assistance,Contact Guard Assistance Transfers Transfer Ability Standby Assistance,Contact Guard Assistance Technique Transfer Destination Bed,Chair,Toilet Devices Transfer Assistive Devices Gait Belt,Front Wheeled Walker Comments Mobility Comments Pt needing reminders to push up from the surface sittting on versus grabbing the FWW. OT- Balance Assessment Sitting Balance and Reactions Static Sitting Balance Ability Normal Dynamic Sitting Balance Ability Normal Standing Balance and Reactions Static Standing Balance Ability Good Dynamic Standing Balance Ability Fair Comments Other Balance Tests/Deviations/Treatment Pt's BP in supine 97/50, : sitting 99/49, and standing 100/50. M8 OT- IP Objective Assessments Start: 09/09/19 13:31 Freq: Status: Active Protocol: Document 09/09/19 15:14 PJM (Rec: 09/09/19 17:06 PJM [id number]) OT Gross Range of Motion Upper Extremity Range of Motion Assessment Within Functional Limits OT Strength Upper Extremity Strength Assessment Within Functional Limits Hand Stoneworking Belt Sander Strength Hand Dominance Left OT- Coordination Assessment Comments Coordination Comments BUE WNL OT Sensation Assessment Comments Summary Comments BUE WNL Edema Edema Absent M9 OT- IP Assessment and Plan Start: 09/09/19 13:31 Freq: Status: Active Protocol: Document 09/11/19 13:19 CGR (Rec: 09/11/19 13:24 CGR [email or web address]) OT Summary Assessment and Plan Potential Rehabilitation Potential Excellent Analytic Complexity at Evaluation Low Summary OT Impairments Pain,Functional Mobility, Dressing,Toileting,Bathing, Toilet Transfers,Shower Transfers,Activity Tolerance Assessment Summary Checked on pt for OT services. PT states she has performed all ADLs and is ready to go home. Discussed home safety with low BP and fluid intake including over hydrating and the need for electrolytes with certain symptoms. Pt states understanding. BP 104/50 seated. Pt declined other activity at this time. Pt left sitting up in chair as found. Call button within reach and all needs at time met. Goals Grooming Goal Independent Dressing Goal Independent Toileting Goal Independent Toilet Transfer Goal Independent,Raised Toilet Seat Patient/Caregiver Education Goal Demonstrate Post-Op Precautions,Demonstrate Energy Conservation and Pacing, Caregiver Independent Assisting Patient Days to Meet Goals 1 Frequency of Treatment Frequency Of Treatment Once a Day Treatment Plan OT Treatment Plan ADL Training,Functional Mobility,Patient/Family Education,Discharge Planning Discharge Recommendations OT Discharge Recommendations Home with Assistance Transportation Needs at Discharge Private Vehicle
--- NOTE | 2019-09-11 13:19 | PM.DS.1 ---
History of Present Illness History of Present Illness Date Patient Seen: 09/11/19 Time Patient Seen: 13:19 Chief complaint: Translaminar Interbody Fusion/Laminotomy Narrative: Indications: Patient has been having chronic back pain and worsening lumbar radiculopathy. Patient failed multiple conservative management with worsening pain weakness and numbness in her lower extremity. Patient has been having difficulty performing activity of daily living. After discussing risks benefits of treatment options, patient elected proceed with surgery. POD #3 s/p L4-5, L5-S1 TLIF with Dr. Larkin. No acute events overnight. Patient reports 8/10 pain at rest. Pain is managed with tylenol and oxycodone. BP was responsive to 500 cc bolus x3 yesterday, during assessment today BP was 120/55. Ambulating and mobilizing well with PT. Voiding without difficulty or assistance. Denies fever, chills, dizziness chest pain, shortness of breath, nausea, vomiting, pain in calves, urinary/bowel incontinence Discharge Providers Provider Date of admission: 09/08/19 07:26 Discharge Date: 09/11/19 Primary care physician: Suha Rodriguez Consults: 09/03/19 08:27 Consult to Anesthesiology Routine Comment: Consulting Provider: Anesthesiologist Reason for consultation: Surgeon requested re:Cardiac 09/08/19 15:55 Consult to Occupational Therapy Evaluate & Treat Comment: Physician Instructions: Evaluate and treat Consult to Physical Therapy Evaluate & Treat Comment: Physician Instructions: Evaluate and Treat 09/09/19 15:52 Consult to Physical Therapy Evaluate & Treat Comment: front wheel walker Physician Instructions: Evaluate and Treat Discharge provider: Ranjana Santiago PA-C Summary Hospital Course Discharge Diagnosis: s/p L4-L5, L5-S1 TLIF orthostatic hypotension atrial fibrillation acid reflux anxiety arteriosclerotic heart disease coronary artery disease esophageal dilation hypertension hyperlipidemia tuberculosis Hospital Course: Patient admitted to hospital s/p L4-5, L5-S1 TLIF with Dr. Larkin. POD #3 patient was ready for discharge home. Hospital course was notable for orthostatic hypotension which resolved on POD #2 with 1500 cc bolus, vistaril and blood pressure medications held. Patient was told to follow up with primary care provider regarding hypotension. Mobilizing with PT prior to discharge. Voiding and eating without difficulty or assistance prior to discharge. Patient was somnolent with oxycodone 10mg, reduced to 5mg and discharged with prescription for oxycodone 5mg. Status at Discharge Cognitive/behavioral status at discharge: oriented Functional status at discharge: uses cane/walker Overall status at discharge: patient is progressing back to baseline Time Spent with Patient Time spent: Less than 30 minutes Exam Vital Signs (past 8 hours): - 09/11/19 05:33 09/11/19 08:23 09/11/19 12:00 Temperature 97.8 F 97.0 F L 98.2 F Pulse Rate 64 81 70 Respiratory Rate 16 16 16 Blood Pressure 105/52 L 127/55 L 120/50 L Pulse Oximetry 95 98 100 Oxygen Delivery Method Room Air Oxygen Flow Rate 0 Narrative Exam Narrative: 69 year old female lying comfortably in bed in no apparent distress. A&Ox3. Dressing CDI. SCDs in place. Able to actively dorsiflex/plantar flex BL. Sensory function grossly intact to light touch in LE BL. Capillary refill <2sec in LE BL. Calves warm, soft, compressible, non tender to palpation BL. Objective Labs Result Diagrams: 09/11/19 11:19 09/11/19 11:19 Labs: Laboratory Results - last 24 hr 09/11/19 09/11/19 11:19 11:19 WBC 6.9 RBC 2.78 L Hgb 9.2 L Hct 26.4 L MCV 94.9 MCH 32.9 MCHC 34.7 RDW 13.4 Plt Count 141 L Neut % (Auto) 75.9 H Lymph % (Auto) 16.9 L [place] % (Auto) 5.2 Eos % (Auto) 1.7 L Baso % (Auto) 0.3 Neut # (Auto) 5200 Lymph # (Auto) 1200 [place] # (Auto) 400 Eos # (Auto) 100 Baso # (Auto) 0 Sodium 139 Potassium 4.1 Chloride 100 Carbon Dioxide 36 H BUN 16 Creatinine 0.90 Estimated GFR > 60.0 BUN/Creatinine Ratio 17.8 Glucose 116 H Calcium 9.2 Total Bilirubin 0.6 AST 58 H ALT 57 H Alkaline Phosphatase 174 H Total Protein 6.5 Albumin 3.5 Globulin 3.0 Albumin/Globulin Ratio 1.2 Discharge Plan Discharge Plan Patient Disposition: Home Discharge orders & Medications Prescriptions: New oxycodone 5 mg tablet 5 mg PO Q4-6H PRN (Reason: pain) Qty: 60 RF: 0 Continued atorvastatin 20 mg Tablet 20 mg PO BEDTIME RF: 0 alprazolam 1 mg Tablet 1 mg PO BID PRN (Reason: Anxiety) RF: 0 atenolol 100 mg Tablet 150 mg PO BID RF: 0 triamterene-hydrochlorothiazid 37.5-25 mg Capsule 1 cap PO QAM RF: 0 amitriptyline 25 mg Tablet 25 mg PO BEDTIME RF: 0 quinapril 20 mg Tablet 20 mg PO BID RF: 0 magnesium oxide 400 mg magnesium Capsule 400 mg PO DAILY RF: 0 Discontinued aspirin 81 mg Tablet,Delayed Release (Dr/Ec) 81 mg PO DAILY RF: 0 Follow up/Referrals: Luis Larkin MD [Physician] - Suha Rodriguez [Primary Care Provider] - Diet/Activity/Treatments Diet: Regular Activity: no excessive bending, lifting, twisting Cold/Heat Therapy: continue cold therapy as needed Skin/Wound/Dressing Care Report to your healthcare provider any signs of infection, such as:: chills, fever, increased pain, unusual drainage and unusual redness Dressing: keep dressing dry. if saturated, contact office for dressing change Visit Report/Discharge Packet Instructions: DI for Prescription Opioid Use, DI for Transforaminal Lumbar Interbody Fusion Stand Alone Forms: Surgery Discharge Discharge Data Primary Care Provider: Suha Rodriguez Discharges patient from system. Discharge Date/Time: 09/11/19 14:46 Quality VTE Deep Vein Thrombosis/Pulmonary Embolism Present on Admission: No
--- NOTE | 2019-09-11 14:27 | PC.NURSE ---
Pt discharged home in POV with spouse and all belongings. IV removed. Dressing changed. Discharge instructions reviewed: pain medications - no driving, use caution when standing or changing position, drink plenty of fluids to avoid constipation; dressing care - keep dry (no direct water from shower), call provider for excessive drainage; spine precautions - no bending, twisting, or lifting; stoke education - call 911 for sudden confusion, weakness, trouble speaking, severe headache; follow up with primary care provider as scheduled; pt indicated no further questions. Hard copy rx for oxycodone 5mg provided. Recommended calling PCP on Wednesday 09/13 to discuss when to restart blood pressure medications that had been held during inpatient stay.
--- NOTE | 2019-09-11 14:33 | PC.NURSE ---
Discharge instructions given to Pt by Student RN Preceptee Jessica with transcription typist. All items covered as charted in note. Pt had no further questions and was discharged.
--- NOTE | 2019-09-12 08:33 | CM.DPC ---
DCP: continued: late entry for yesterday: 09/11. DC order was noted at about 1530 as this dcplanner had been out seeing other patients all afternoon. EMR reviewed and note that pt did d/c to home setting as per her prior d/c plan. MAR #2: unable to present this to pt as per the weekend protocol as she had already left for home. She had expressed no concerns to care team members re her d/c home today.
== END 2019-09-11 14:46 | disposition home or self-care (01) | DRG 455 ==
LOC: AC 07:34 → ICU 09-09 11:27 → AC 09-09 16:05 → ICU 09-09 16:05
PROVIDERS: Physician Assistant; Admitting Provider Orthopaedic Surgery Orthopaedic Surgery of the Spine; PCP Physician Assistant Medical; Referring Provider Orthopaedic Surgery Orthopaedic Surgery of the Spine; Visit Provider Orthopaedic Surgery Orthopaedic Surgery of the Spine
PROC: 0SG00AJ Fusion of Lumbar Vertebral Joint with Interbody Fusion Device, Posterior Approach, Anterior Column, Open Approach (ICD-10-PCS; principal; 2019-09-08 08:45)
DX: M41.56 Other secondary scoliosis, lumbar region (principal); M41.27 Other idiopathic scoliosis, lumbosacral region; I95.9 Hypotension, unspecified; I25.10 Atherosclerotic heart disease of native coronary artery without angina pectoris; M48.061 Spinal stenosis, lumbar region without neurogenic claudication; I10 Essential (primary) hypertension; E78.5 Hyperlipidemia, unspecified; I48.0 Paroxysmal atrial fibrillation; M43.17 Spondylolisthesis, lumbosacral region; M43.16 Spondylolisthesis, lumbar region; M48.07 Spinal stenosis, lumbosacral region; F41.9 Anxiety disorder, unspecified; Z87.891 Personal history of nicotine dependence
CPT/HCPCS: 36415; 72100; 76000; 80053; 85014; 85018; 85025; 97116; 97162; 97165; 97530; 97535; C1776; C9290; J0330; J0690; J1170; J2405; J2704; J3010